=== PATIENT | male | born 1975 | race Caucasian/White ===

== ENCOUNTER 2022-12-10 03:29 | Emergency (ER) | payer OTHER, SELFPAY ==
[2022-12-10] VITALS (10 sets, daily range): BP systolic 152–203; BP diastolic 103–133; PULSE 73–94; RESP 12–23; O2SAT 85–100; BMI 21.9
--- NOTE | 2022-12-10 03:31 | ECG_ITS ---
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
--- NOTE | 2022-12-10 03:47 | ED.GENADUL1 ---
HPI - General Adult General Chief complaint: Weakness Stated complaint: hypertension Time Seen by Provider: 12/10/22 03:44 Source: patient Mode of arrival: ambulance Limitations: no limitations History of Present Illness HPI narrative: presents complaining of feeling light headed and stiff. He is an alcoholic. Has not drink in 12 hours. states he was not able to stay at work tonight because his body would become stiff. History of HTN . Takes linsinopril Onset (ago): hour(s) Related Data Allergies Allergy/AdvReac Type Severity Reaction Status Date / Time No Known Drug Allergies Allergy Verified 12/10/22 04:04 Review of Systems ROS Status of ROS 10 or more systems reviewed and unremarkable except as noted in history and below PFSH PFSH Social History Smoking status: Former smoker Exam Constitutional Vital Signs - 24 hr 12/10/22 03:32 12/10/22 03:29 12/10/22 03:42 Pulse Rate 89 88 Pulse Rate [Monitor] 88 Respiratory Rate 18 17 13 Blood Pressure 181/122 H 183/124 H Blood Pressure [Left Arm] 181/122 H Pulse Oximetry 99 100 100 Oxygen Delivery Method Room Air 12/10/22 04:00 12/10/22 04:30 12/10/22 04:00 Pulse Rate 94 H 79 Pulse Rate [Monitor] Respiratory Rate 19 12 Blood Pressure 169/113 H 203/133 H 200/103 H Blood Pressure [Left Arm] Pulse Oximetry 98 99 Oxygen Delivery Method 12/10/22 04:00 12/10/22 04:30 12/10/22 04:58 Pulse Rate 77 81 Pulse Rate [Monitor] Respiratory Rate 23 20 Blood Pressure 203/133 H 173/113 H Blood Pressure [Left Arm] Pulse Oximetry 99 95 95 Oxygen Delivery Method Room Air 12/10/22 05:00 12/10/22 05:34 12/10/22 05:00 Pulse Rate 77 76 Pulse Rate [Monitor] Respiratory Rate 16 15 Blood Pressure 171/113 H 172/113 H 171/113 H Blood Pressure [Left Arm] Pulse Oximetry 95 97 Oxygen Delivery Method 12/10/22 05:30 12/10/22 05:30 12/10/22 06:00 Pulse Rate 76 84 90 Pulse Rate [Monitor] Respiratory Rate 14 22 16 Blood Pressure 172/113 H 172/113 H 152/108 H Blood Pressure [Left Arm] Pulse Oximetry 97 97 94 L Oxygen Delivery Method Common normals: oriented x3, healthy appearing and alert HENMT Common normals: normocephalic and head/scalp atraumatic Eye Common normals: PERRL, EOMs intact bilaterally and conjunctivae normal Respiratory Common normals: normal respiratory effort, no retractions and no use of accessory muscles Cardio Common normals: regular rate, regular rhythm, S1 normal heart sound and S2 normal heart sound GI Common normals: Normal to inspection, nondistended, normoactive bowel sounds present, soft to palpation and non-tender Extremity Common normals: normal to inspection and full ROM Neuro Common normals: oriented x3, CN's II-XII intact bilaterally, moves all extremities, no focal motor deficits and no sensory deficits noted Psych Appearance: grossly normal Course Vital Signs Vital signs: Vital Signs Pulse Rate 89 12/10/22 03:29 Respiratory Rate 17 12/10/22 03:29 Blood Pressure 181/122 H 12/10/22 03:29 Pulse Oximetry 100 12/10/22 03:29 Pulse Rate 90 12/10/22 06:00 Respiratory Rate 16 12/10/22 06:00 Blood Pressure 152/108 H 12/10/22 06:00 Pulse Oximetry 94 L 12/10/22 06:00 Oxygen Delivery Method Room Air 12/10/22 04:00 Medical Decision Making MDM Narrative Medical decision making narrative: patient presents complaining of hypertension and a sensation of his body becoming stiff at time. Given dose of Ativan and was able to relax without recurrence of this symptom. lab demonstrated mild hypokalemia that was treated. His BP was treated and decreased to 152/108. Down from 181 systolic. He is feeling better. Advised to go home and take his dose of lisinopril for today and to follow up with his family doctor Lab Data Labs: Lab Results 12/10/22 Range/Units 03:35 WBC 6.8 (4.0-11.0) 10^3/uL RBC 4.09 L (4.70-6.10) 10^6/uL Hgb 14.0 (14.0-18.0) g/dL Hct 38.3 L (42.0-54.0) % MCV 93.6 (80.0-94.0) fL MCH 34.2 H (25.9-34.0) pg MCHC 36.6 H (29.9-35.2) g/dL RDW 11.3 (11.0-15.0) % Plt Count 266 (150-450) 10^3/uL MPV 9.4 L (9.5-13.5) fL Neut % (Auto) 80.9 H (43.0-75.0) % Lymph % (Auto) 12.0 L (20.5-60.0) % [place] % (Auto) 5.9 (1.7-12.0) % Eos % (Auto) 0.1 L (0.9-7.0) % Baso % (Auto) 1.0 (0.2-2.0) % Neut # (Auto) 5.5 (1.4-6.5) 10^3/uL Lymph # (Auto) 0.8 L (1.2-3.8) 10^3/uL [place] # (Auto) 0.4 (0.3-0.8) 10^3/uL Eos # (Auto) 0.0 (0.0-0.7) 10^3/uL Baso # (Auto) 0.1 (0.0-0.1) 10^3/uL Abs Immat Gran (auto) 0.01 (0.00-0.03) 10^3/uL Imm/Tot Granulo (auto) 0.1 (0.0-0.5) % Sodium 135 L (136-145) mmol/L Potassium 3.3 L (3.5-5.1) mmol/L Chloride 98 (98-107) mmol/L Carbon Dioxide 22.5 (21.0-32.0) mmol/L Anion Gap 17.8 BUN 9.0 (7.0-18.0) mg/dL Creatinine 0.95 (0.70-1.30) mg/dL Est GFR ( Amer) >60 (>=60) Est GFR (Non-Af Amer) >60 (>=60) BUN/Creatinine Ratio 9.5 Glucose 105 (74-106) mg/dL Calcium 9.6 (8.5-10.1) mg/dL Magnesium 2.0 (1.8-2.4) mg/dL Total Bilirubin 0.5 (0.2-1.0) mg/dL AST 34 (15-37) U/L ALT 33 (16-63) U/L Alkaline Phosphatase 68 (46-116) U/L Total Protein 8.3 H (6.4-8.2) g/dL Albumin 4.8 (3.4-5.0) g/dL Globulin 3.5 g/dL Albumin/Globulin Ratio 1.4 Discharge Plan Discharge Chief Complaint: Weakness Clinical Impression: Hypertension, Anxiety Patient Disposition: Home, Self-Care Instructions: Hypertension (ED), Anxiety (ED) Additional Instructions: take your morning dose of lisinopril when you get home. Follow up with your family doctor in the next 1-2 days Stand Alone Forms: Portal Instructions Referrals: Physician,Non-Staff, MD [Primary Care Provider] - 1 week
[2022-12-10 04:13] LABS: Basophils Absolute Auto 0.1 10^3/uL (0.0-0.1); Eosinophils Percent Auto 0.1 % (0.9-7.0); Hematocrit 38.3 % (42.0-54.0); Immature Granulocytes Abs Auto 0.01 10^3/uL (0.00-0.03); Immature Granulocytes Pct Auto 0.1 % (0.0-0.5); Lymphocytes Absolute Auto 0.8 10^3/uL (1.2-3.8); Mean Corpuscular HGB Conc 36.6 g/dL (29.9-35.2); Mean Corpuscular Hemoglobin 34.2 pg (25.9-34.0); Mean Corpuscular Volume 93.6 fL (80.0-94.0); Mean Platelet Volume 9.4 fL (9.5-13.5); Monocytes Absolute Auto 0.4 10^3/uL (0.3-0.8); Monocytes Percent Auto 5.9 % (1.7-12.0); Neutrophils Absolute Auto 5.5 10^3/uL (1.4-6.5); Neutrophils Percent Auto 80.9 % (43.0-75.0); Platelet Count 266 10^3/uL (150-450); Red Blood Count 4.09 10^6/uL (4.70-6.10); Red Cell Distribution Width 11.3 % (11.0-15.0); White Blood Count 6.8 10^3/uL (4.0-11.0)
[2022-12-10 04:25] LABS: Alanine Aminotransferase 33 U/L (16-63); Albumin Globulin Ratio 1.4; Albumin Level 4.8 g/dL (3.4-5.0); Alkaline Phosphatase 68 U/L (46-116); Anion Gap 17.8; Aspartate Amino Transferase 34 U/L (15-37); BUN Creatinine Ratio 9.5; Bilirubin Total 0.5 mg/dL (0.2-1.0); Calcium 9.6 mg/dL (8.5-10.1); Carbon Dioxide 22.5 mmol/L (21.0-32.0); Chloride 98 mmol/L (98-107); Estimated GFR (African America >60 (>=60); Estimated GFR (Non-African Ame >60 (>=60); Globulin 3.5 g/dL; Glucose 105 mg/dL (74-106); Potassium 3.3 mmol/L (3.5-5.1); Sodium 135 mmol/L (136-145); Total Protein 8.3 g/dL (6.4-8.2)
[2022-12-10] MEDS: LORAZEPAM 1 MG TABLET PO (04:28)
[2022-12-10] MEDS: CLONIDINE HCL 0.1 MG TABLET PO ×2 (04:28→05:34)
[2022-12-10] MEDS: POTASSIUM CHLORIDE 10 MEQ ER TABLET 40 MEQ PO (05:34)
== END 2022-12-10 06:49 | disposition home or self-care (01) ==
PROVIDERS: Emergency Provider Internal Medicine
DX: E87.6 Hypokalemia (principal); I10 Essential (primary) hypertension; F41.9 Anxiety disorder, unspecified; Z79.899 Other long term (current) drug therapy; F10.20 Alcohol dependence, uncomplicated; Z87.891 Personal history of nicotine dependence
CPT/HCPCS: 36415; 80053; 81003; 83735; 85025; 93005; 99284

== ENCOUNTER 2023-06-16 22:07 | Emergency (ER) | payer OTHER, SELFPAY ==
[2023-06-16] VITALS (14 sets, daily range): BP systolic 147–190; BP diastolic 97–113; PULSE 86; RESP 16; TEMP 36.6; O2SAT 97–100; BMI 22.8
--- NOTE | 2023-06-16 22:54 | CT_ITS ---
The [address] [address] Patient Name: LEFTY AMBROCIO MRN: [id number] date: 1975 Sex: M Assigned Patient Location: ER Current Patient Location: Accession/Order Number: [id number] Exam Date: 06/16/2023 23:20 Report Date: 06/16/2023 23:48 At the request of: MADELEINE MARKER Procedure: CT lumbar spine wo con EXAM: CT lumbar spine wo con HISTORY: Lower ext weakness COMPARISON: None. TECHNIQUE: Axial CT scans of the lumbar spine were obtained without contrast. MPR images were obtained. Dose reduction techniques were achieved by using: automated exposure control and/or adjustment of mA and /or kV according to patient size and/or use of iterative reconstruction technique. FINDINGS: The alignment of the lumbar spine is normal. Disc heights are preserved. No disc protrusion, central spinal stenosis or neural foraminal stenosis. No spondylolysis or spondylolisthesis. No destructive bone lesions. SI joints are intact. Mild marginal osteophytes at the anterior aspects of the SI joints. The visualized retroperitoneum shows no adenopathy. CT/CT lumbar spine wo con IMPRESSION: Unremarkable CT of the lumbar spine. Electronically authenticated by: CECELIA TAYLOR Date: 06/16/2023 23:48
--- NOTE | 2023-06-16 22:54 | XR_ITS ---
The [address] [address] Patient Name: LEFTY AMBROCIO MRN: [id number] date: 1975 Sex: M Assigned Patient Location: ER Current Patient Location: ER Accession/Order Number: [id number] Exam Date: 06/16/2023 23:25 Report Date: 06/16/2023 23:54 At the request of: MADELEINE FRANCIS Procedure: XR hip RT 1V w/ pelvis XR hip RT 1V w/ pelvis: HISTORY: right hip pain right hip pain COMPARISON: None available. TECHNIQUE: 2 views of the right hip and bony pelvis are submitted. FINDINGS: BONES/JOINT SPACES: There is no acute fracture or dislocation. The joint spaces are well-maintained. The contour of each femoral head is well-maintained. SOFT TISSUES: The soft tissues are unremarkable. XR/XR hip RT 1V w/ pelvis IMPRESSION: Unremarkable plain film examination of the right hip and bony pelvis. Electronically authenticated by: LILIBETH BROOKE Date: 06/16/2023 23:54
--- NOTE | 2023-06-16 22:54 | ED.GENADUL1 ---
HPI - General Adult General Chief complaint: Extremity Problem, Nontraumatic Stated complaint: LEGS AND ARMS NUMBNESS, SHAKY Time Seen by Provider: 06/16/23 22:13 Source: patient Mode of arrival: walk-in Limitations: no limitations History of Present Illness HPI narrative: 38-year-old male presents for evaluation of right hip pain and numbness, intermittent shocking pains down his lower extremities and some weakness. He states he had similar symptoms last week. He also has intermittent shaking of his upper extremities. He denies any injury. He did have back surgery in the past with Dr. Cabrera. He denies any recent falls. He has not had any loss of bowel or bladder control. He recently stopped taking his lisinopril but did take a half a tablet earlier today. He has no chest pain or shortness of breath. He denies any abdominal pain. He has been urinating normally. He states he started taking magnesium because he thought that might help him with his shaking episodes. He does admit to drinking 6, 16 ounce beers on a daily basis. He states he has been trying to cut back recently. Related Data Home Medications Medication Instructions Recorded Confirmed No Known Home Medications 06/16/23 06/16/23 Allergies Allergy/AdvReac Type Severity Reaction Status Date / Time No Known Drug Allergies Allergy Verified 06/16/23 22:26 Review of Systems ROS Status of ROS 10 or more systems reviewed and unremarkable except as noted in history and below [facility] Social History Smoking status: Former smoker Exam Narrative Exam Narrative: Nurses note and vital signs reviewed and patient is not hypoxic. Blood pressure noted to be elevated at 150/105 General: Thin, male resting currently on the stretcher, he easily gets off of the stretcher to undress and change into a gown, he does appear to limp with an antalgic gait to the right due to right-sided hip pain, no respiratory distress Skin: Warm, dry, no pallor noted. There is no rash noted. Head: Normocephalic, atraumatic Eye: Normal conjunctiva, no drainage, EOMI. PERRL. No scleral icterus Ears, Nose, Mouth, and Throat: oral mucosa is moist. Nares patent. Cardiovascular: Regular Rate and Rhythm S1S2, pulses are brisk and equal bilaterally Respiratory: Patient is in no distress, no accessory muscle use, lungs are clear to auscultation, no wheezing, rales or rhonchi Back: non-tender, no CVA tenderness bilaterally to percussion. No midline bony vertebral tenderness or step off, no apprec muscle spasm GI: Normal bowel sounds, no tenderness to palpation, no masses appreciated. No rebound, guarding, or rigidity noted. Musculoskeletal: The patient has no evidence of calf tenderness, no pitting edema, symmetrical pulses noted bilaterally Negative straight leg raising , no muscle fasciculations noted, upper and lower extremity strength and sensation is intact Neurological: A&O x4, normal speech, No saddle anesthesia, deep tendon reflexes are brisk and equal bilaterally. Patient is able to raise both legs off the stretcher and hold them against gravity independently without any weakness noted or fasciculations, sensation in the feet, lower legs and thighs, lower abdomen and back as well as upper extremities is normal. [employer] strength is intact. Psychiatric: Cooperative Constitutional Vital Signs, click to edit/add: Last Vital Signs Temp 98 F 06/16/23 22:22 Pulse 86 06/16/23 22:22 Resp 16 06/16/23 22:22 BP 147/95 H 06/17/23 01:00 Pulse Ox 98 06/17/23 01:10 O2 Del Method Room Air 06/16/23 22:22 Course Vital Signs Vital signs: Vital Signs Temperature 98 F 06/16/23 22:22 Pulse Rate 86 06/16/23 22:22 Respiratory Rate 16 06/16/23 22:22 Blood Pressure 190/110 H 06/16/23 22:22 Pulse Oximetry 98 06/16/23 22:22 Oxygen Delivery Method Room Air 06/16/23 22:22 Temperature 98 F 06/16/23 22:22 Pulse Rate 86 06/16/23 22:22 Respiratory Rate 16 06/16/23 22:22 Blood Pressure 147/95 H 06/17/23 01:00 Pulse Oximetry 98 06/17/23 01:10 Oxygen Delivery Method Room Air 06/16/23 22:22 Medical Decision Making MDM Narrative Medical decision making narrative: This 48-year-old male presents for evaluation of right sided hip pain and left-sided leg pain with intermittent sharp stabbing pains that are electric-like at times with numbness and tingling and occasional weakness. The patient states he had similar symptoms several weeks ago that resolved. He does not currently have a family physician. He was formally seeing a physician and is on lisinopril for his blood pressure. The patient has not had any recent trauma. He has not had any bowel or bladder dysfunction. He also complains of intermittent muscle spasms to his upper extremities. He admits to daily alcohol use. He states that he does not wish to drink alcohol on a daily basis but gets stressed out at work and uses alcohol to help relieve his stress and anxiety. He has not had any recent fever. He has no skin rash. His neuro exam is normal. His upper and lower from a strength and sensation is intact. He appears cognitively normal and not intoxicated during the exam. An IV was placed and he was medicated with 125mg IV solumedrol and IVF. Routine labs are reviewed and are normal. CT scan of the lumbar spine which is included in the body of this report does not show any acute findings and x-ray of the right hip is also normal. After the radiographic studies were resolved and I discussed them with the patient he admitted to me that these symptoms are long-standing and he was going to try to get disability for them in the past. I did discuss his alcohol use with him and suggested that he decrease his alcohol intake as some of these spastic episodes he is having may be related to his alcohol use. He verbalizes understanding of this. He will be referred outpatient family medicine and may require a referral to neurology for further evaluation of the neurologic symptoms he is explaining to me but are not evident on the physical exam. He is neurologically and hemodynamically stable for discharge. He will be referred to outpatient family medicine Medical Records Medical records narrative: The [address] [address] [address] Scan Report Signed Patient: LEFTY AMBROCIO MR#: [id number] : 1975 Acct:[id number] Age/Sex: 48 / M ADM Date: 06/16/23 Loc: ER Attending Dr: Ordering Physician: Peggy Moore Date of Service: 06/16/23 Procedure(s): CT lumbar spine wo con Accession Number(s): [id number] cc: Physician,Non-Staff M.DGregg~ The [address] [address] Patient Name: LEFTY AMBROCIO MRN: [id number] date: 1975 Sex: M Assigned Patient Location: ER Current Patient Location: ER Accession/Order Number: [id number] Exam Date: 06/16/2023 23:20 Report Date: 06/16/2023 23:48 At the request of: PEGGY MARKER Procedure: CT lumbar spine wo con EXAM: CT lumbar spine wo con HISTORY: Lower ext weakness COMPARISON: None. TECHNIQUE: Axial CT scans of the lumbar spine were obtained without contrast. MPR images were obtained. Dose reduction techniques were achieved by using: automated exposure control and/or adjustment of mA and /or kV according to patient size and/or use of iterative reconstruction technique. FINDINGS: The alignment of the lumbar spine is normal. Disc heights are preserved. No disc protrusion, central spinal stenosis or neural foraminal stenosis. No spondylolysis or spondylolisthesis. No destructive bone lesions. SI joints are intact. Mild marginal osteophytes at the anterior aspects of the SI joints. The visualized retroperitoneum shows no adenopathy. CT/CT lumbar spine wo con IMPRESSION: Unremarkable CT of the lumbar spine. Electronically authenticated by: CECELIA TAYLOR Date: 06/16/2023 23:[address] [address] XRay Report Signed Patient: LEFTY AMBROCIO MR#: [id number] : 1975 Acct:[id number] Age/Sex: 48 / M ADM Date: 06/16/23 Loc: ER Attending Dr: Ordering Physician: Peggy Moore Date of Service: 06/16/23 Procedure(s): XR hip RT 1V w/ pelvis Accession Number(s): [id number] cc: Peggy Marker; Physician,Non-Staff M.D.~ The [address] [address] Patient Name: LEFTY AMBROCIO MRN: [id number] date: 1975 Sex: M Assigned Patient Location: ER Current Patient Location: ER Accession/Order Number: [id number] Exam Date: 06/16/2023 23:25 Report Date: 06/16/2023 23:54 At the request of: PEGGY MARKER Procedure: XR hip RT 1V w/ pelvis XR hip RT 1V w/ pelvis: HISTORY: right hip pain right hip pain COMPARISON: None available. TECHNIQUE: 2 views of the right hip and bony pelvis are submitted. FINDINGS: BONES/JOINT SPACES: There is no acute fracture or dislocation. The joint spaces are well-maintained. The contour of each femoral head is well-maintained. SOFT TISSUES: The soft tissues are unremarkable. XR/XR hip RT 1V w/ pelvis IMPRESSION: Unremarkable plain film examination of the right hip and bony pelvis. Electronically authenticated by: LILIBETH BROOKE Date: 06/16/2023 23: Lab Data Labs: Lab Results 06/16/23 Range/Units 23:00 WBC 3.6 L (4.0-11.0) 10^3/uL RBC 4.06 L (4.70-6.10) 10^6/uL Hgb 13.9 L (14.0-18.0) g/dL Hct 39.8 L (42.0-54.0) % MCV 98.0 H (80.0-94.0) fL MCH 34.2 H (25.9-34.0) pg MCHC 34.9 (29.9-35.2) g/dL RDW 11.3 (11.0-15.0) % Plt Count 234 (150-450) 10^3/uL MPV 9.7 (9.5-13.5) fL Neut % (Auto) 52.6 (43.0-75.0) % Lymph % (Auto) 32.4 (20.5-60.0) % [place] % (Auto) 10.4 (1.7-12.0) % Eos % (Auto) 2.7 (0.9-7.0) % Baso % (Auto) 1.6 (0.2-2.0) % Neut # (Auto) 1.9 (1.4-6.5) 10^3/uL Lymph # (Auto) 1.2 (1.2-3.8) 10^3/uL [place] # (Auto) 0.4 (0.3-0.8) 10^3/uL Eos # (Auto) 0.1 (0.0-0.7) 10^3/uL Baso # (Auto) 0.1 (0.0-0.1) 10^3/uL Abs Immat Gran (auto) 0.01 (0.00-0.03) 10^3/uL Imm/Tot Granulo (auto) 0.3 (0.0-0.5) % Sodium 135 L (136-145) mmol/L Potassium 3.9 (3.5-5.1) mmol/L Chloride 103 (98-107) mmol/L Carbon Dioxide 23.6 (21.0-32.0) mmol/L Anion Gap 12.3 BUN 13.0 (7.0-18.0) mg/dL Creatinine 0.88 (0.70-1.30) mg/dL Est GFR ( Amer) >60 (>=60) Est GFR (Non-Af Amer) >60 (>=60) BUN/Creatinine Ratio 14.8 Glucose 93 (74-106) mg/dL Calcium 8.7 (8.5-10.1) mg/dL Magnesium 2.1 (1.8-2.4) mg/dL Total Bilirubin 0.3 (0.2-1.0) mg/dL AST 18 (15-37) U/L ALT 28 (16-63) U/L Alkaline Phosphatase 85 (46-116) U/L Total Protein 7.6 (6.4-8.2) g/dL Albumin 4.0 (3.4-5.0) g/dL Globulin 3.6 g/dL Albumin/Globulin Ratio 1.1 Discharge Plan Discharge Chief Complaint: Extremity Problem, Nontraumatic Clinical Impression: Muscle spasm, Chronic pain of right hip, Left lumbar radiculopathy Patient Disposition: Home, Self-Care Time of Disposition Decision: 01:23 Condition: Good Prescriptions / Home Meds: No Action No Known Home Medications Stand Alone Forms: Portal Instructions Referrals: Mario Braun MD [Physician] - 1 week Physician,Non-Staff, [Primary Care Provider] - 1 week
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
[2023-06-16 23:19] LABS: Basophils Absolute Auto 0.1 10^3/uL (0.0-0.1); Basophils Percent Auto 1.6 % (0.2-2.0); Eosinophils Absolute Auto 0.1 10^3/uL (0.0-0.7); Eosinophils Percent Auto 2.7 % (0.9-7.0); Hematocrit 39.8 % (42.0-54.0); Hemoglobin 13.9 g/dL (14.0-18.0); Immature Granulocytes Abs Auto 0.01 10^3/uL (0.00-0.03); Immature Granulocytes Pct Auto 0.3 % (0.0-0.5); Lymphocytes Absolute Auto 1.2 10^3/uL (1.2-3.8); Lymphocytes Percent Auto 32.4 % (20.5-60.0); Mean Corpuscular HGB Conc 34.9 g/dL (29.9-35.2); Mean Corpuscular Hemoglobin 34.2 pg (25.9-34.0); Mean Platelet Volume 9.7 fL (9.5-13.5); Monocytes Absolute Auto 0.4 10^3/uL (0.3-0.8); Monocytes Percent Auto 10.4 % (1.7-12.0); Neutrophils Absolute Auto 1.9 10^3/uL (1.4-6.5); Neutrophils Percent Auto 52.6 % (43.0-75.0); Platelet Count 234 10^3/uL (150-450); Red Blood Count 4.06 10^6/uL (4.70-6.10); Red Cell Distribution Width 11.3 % (11.0-15.0); White Blood Count 3.6 10^3/uL (4.0-11.0)
[2023-06-16] MEDS: 0.9 % SODIUM CHLORIDE 1,000 ML 1000 ML IV (23:28)
[2023-06-16] MEDS: METHYLPREDNISOLONE SOD SUCC PF 125 MG/2 ML VIAL IVP (23:28)
[2023-06-16 23:37] LABS: Alanine Aminotransferase 28 U/L (16-63); Albumin Globulin Ratio 1.1; Alkaline Phosphatase 85 U/L (46-116); Anion Gap 12.3; Aspartate Amino Transferase 18 U/L (15-37); BUN Creatinine Ratio 14.8; Bilirubin Total 0.3 mg/dL (0.2-1.0); Calcium 8.7 mg/dL (8.5-10.1); Carbon Dioxide 23.6 mmol/L (21.0-32.0); Chloride 103 mmol/L (98-107); Estimated GFR (African America >60 (>=60); Estimated GFR (Non-African Ame >60 (>=60); Globulin 3.6 g/dL; Glucose 93 mg/dL (74-106); Magnesium 2.1 mg/dL (1.8-2.4); Potassium 3.9 mmol/L (3.5-5.1); Sodium 135 mmol/L (136-145); Total Protein 7.6 g/dL (6.4-8.2)
[2023-06-17] VITALS (10 sets, daily range): BP systolic 137–151; BP diastolic 93–106; O2SAT 81–99
[2023-06-17] MEDS: KETOROLAC TROMETHAMINE 30 MG/ML VIAL IVP (01:32)
== END 2023-06-17 01:43 | disposition home or self-care (01) ==
PROVIDERS: Emergency Provider Emergency Medicine
DX: M25.551 Pain in right hip (principal); G89.29 Other chronic pain; M62.838 Other muscle spasm; M54.16 Radiculopathy, lumbar region; Z87.891 Personal history of nicotine dependence
CPT/HCPCS: 36415; 72131; 73501; 80053; 83735; 85025; 96374; 96375; 99285; J1885; J2930

== ENCOUNTER 2023-06-25 08:12 | Outpatient (RCR) | payer OTHER, SELFPAY | END 2023-07-23 16:38 | disposition home or self-care (01) | LOC: PT 08:12 | PROVIDERS: PCP Nurse Practitioner Family; Visit Provider Nurse Practitioner Family | DX: M25.551 Pain in right hip (principal); M54.30 Sciatica, unspecified side | CPT/HCPCS: 97110; 97112; 97140; 97163 ==

== ENCOUNTER 2023-09-17 04:40 | Emergency (ER) | payer OTHER, SELFPAY ==
[2023-09-17] VITALS (13 sets, daily range): BP systolic 152–180; BP diastolic 100–115; PULSE 71–91; TEMP 37; O2SAT 97–100; BMI 22.7
--- NOTE | 2023-09-17 04:51 | ECG_ITS ---
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
--- NOTE | 2023-09-17 05:00 | ED.GENADUL1 ---
HPI HPI - General Adult General Chief complaint: Anxiety Stated complaint: other Time Seen by Provider: 09/17/23 04:49 Source: patient Mode of arrival: ambulance History of Present Illness HPI narrative: This 48-year-old male with a history of hypertension, chronic right hip pain and all called dependence presents for evaluation of generally not feeling well. The patient states he has recently stopped drinking alcohol and was clean for about 30 days but then started drinking again in small quantities which have increased to larger quantities. He states he has a lot of anxiety issues over his finances and medical insurance. He called EMS tonight because he was feeling anxious and shaky and dizzy. He has not passed out. He denies any abdominal pain. He states he also recently quit smoking cigarettes and has not had a cigarette in the past 60 days. He is not currently seeing any physicians and is not on any blood pressure medication or anxiety medication. On EMS arrival he was found to be hypertensive and was given a spray of nitroglycerin. Upon arrival his blood pressure elevated at 180/113. Related Data Home Medications ?Medication ?Instructions ?Recorded ?Confirmed No Known Home Medications 06/16/23 06/16/23 Allergies Allergy/AdvReac Type Severity Reaction Status Date / Time naproxen AdvReac Intermediate Verified 09/17/23 04:49 oyster Allergy Severe Uncoded 09/17/23 04:49 Opioid HPI Opioid Management Most Recent Opioid Data: No Data to Display Review of Systems ROS Status of ROS 10 or more systems reviewed and unremarkable except as noted in history and below PFSH PFSH Social History Smoking status: Former smoker Exam Narrative Exam Narrative: Nurses note and vital signs reviewed and patient is not hypoxic.Blood pressures elevated at 180/113 General: Thin, anxious male, he is forthcoming with his history. No respiratory distress Skin: Warm, dry, no pallor noted. There is no rash noted. Head: Normocephalic, atraumatic Eye: Normal conjunctiva, no drainage, EOMI. PERRL. No scleral icterus Ears, Nose, Mouth, and Throat: oral mucosa is moist. Cardiovascular: Regular Rate and Rhythm S1S2, pulses are brisk and equal bilaterally Respiratory: Patient is in no distress, no accessory muscle use, lungs are clear to auscultation, no wheezing, rales or rhonchi Back: non-tender, no CVA tenderness bilaterally to percussion. GI: Normal bowel sounds, no tenderness to palpation, no masses appreciated. No rebound, guarding, or rigidity noted. Musculoskeletal: The patient has no evidence of calf tenderness, no pitting edema, symmetrical pulses noted bilaterally Neurological: A&O x4, normal speech Psychiatric: Cooperative, anxious Constitutional Vital Signs, click to edit/add: Last Vital Signs Temp 98.6 F 09/17/23 05:00 Pulse 71 09/17/23 06:00 Resp 20 09/17/23 04:49 BP 152/100 H 09/17/23 06:00 Pulse Ox 97 09/17/23 06:10 O2 Del Method Room Air 09/17/23 04:49 Course Vital Signs Vital signs: Vital Signs Pulse Rate 91 H 09/17/23 04:47 Pulse Oximetry 99 09/17/23 04:47 Temperature 98.6 F 09/17/23 05:00 Pulse Rate 71 09/17/23 06:00 Respiratory Rate 20 09/17/23 04:49 Blood Pressure 152/100 H 09/17/23 06:00 Pulse Oximetry 97 09/17/23 06:10 Oxygen Delivery Method Room Air 09/17/23 04:49 Medical Decision Making MDM Narrative Medical decision making narrative: This 48-year-old male with a history of hypertension, anxiety, chronic hip pain and a tremor is brought to the emergency department from home for evaluation. The patient states he has been trying to stop drinking alcohol and was clean from alcohol for approximately 30 days. Recently quit smoking cigarettes and has been clean from cigarettes for 60 days. He states that he thought he could start drinking small amounts of alcohol but it has gradually decreased up on him. He is also smoking marijuana when he gets drunk. He states he started feeling very anxious this morning and uncomfortable. He felt his heart was racing. EMS was called and his blood pressure was notably elevated. He was given some nitroglycerin spray by EMS and brought to the emergency department. On arrival an EKG was ordered which is a sinus rhythm at 80 beats for minute. An IV was placed and he was medicated with IV fluids, Thiamine and 5 mg of oral Valium.. His blood pressure has slowly come down and at the time of this dictation is 150/100. That he is having a lot of anxiety related to his financial situation and medical insurance issues. He is not currently seeing a family physician because he lost his insurance. He does not appear to be in any degree of alcohol withdrawal. His labs are normal including CBC with differential, comprehensive metabolic profile, magnesium and troponin. A reevaluation he states he is feeling better. He admits that he needs to get back into Alcoholics Anonymous and goes to meetings to help him refrain from using alcohol. I also encouraged him to stop using marijuana as the alcohol and marijuana combination are likely increasing his anxiety. He will be discharged for hydroxyzine to use for ongoing anxiety issues. He is agreeable to being prescribed a blood pressure medication but does not want Lisinopril because he thinks that it drops his blood pressure too much. I will prescribe him [id number]. Lab Data Labs: Lab Results 09/17/23 Range/Units 05:09 WBC 5.1 (4.0-11.0) 10^3/uL RBC 4.16 L (4.70-6.10) 10^6/uL Hgb 14.2 (14.0-18.0) g/dL Hct 39.8 L (42.0-54.0) % MCV 95.7 H (80.0-94.0) fL MCH 34.1 H (25.9-34.0) pg MCHC 35.7 H (29.9-35.2) g/dL RDW 10.6 L (11.0-15.0) % Plt Count 229 (150-450) 10^3/uL MPV 9.6 (9.5-13.5) fL Neut % (Auto) 60.2 (43.0-75.0) % Lymph % (Auto) 28.4 (20.5-60.0) % [place] % (Auto) 9.0 (1.7-12.0) % Eos % (Auto) 1.0 (0.9-7.0) % Baso % (Auto) 1.2 (0.2-2.0) % Neut # (Auto) 3.1 (1.4-6.5) 10^3/uL Lymph # (Auto) 1.5 (1.2-3.8) 10^3/uL [place] # (Auto) 0.5 (0.3-0.8) 10^3/uL Eos # (Auto) 0.1 (0.0-0.7) 10^3/uL Baso # (Auto) 0.1 (0.0-0.1) 10^3/uL Abs Immat Gran (auto) 0.01 (0.00-0.03) 10^3/uL Imm/Tot Granulo (auto) 0.2 (0.0-0.5) % Sodium 138 (136-145) mmol/L Potassium 3.6 (3.5-5.1) mmol/L Chloride 100 (98-107) mmol/L Carbon Dioxide 24.9 (21.0-32.0) mmol/L Anion Gap 16.7 BUN 12.0 (7.0-18.0) mg/dL Creatinine 0.87 (0.70-1.30) mg/dL Est GFR ( Amer) >60 (>=60) Est GFR (Non-Af Amer) >60 (>=60) BUN/Creatinine Ratio 13.8 Glucose 104 (74-106) mg/dL Calcium 9.1 (8.5-10.1) mg/dL Magnesium 1.9 (1.8-2.4) mg/dL Total Bilirubin 0.9 (0.2-1.0) mg/dL AST 31 (15-37) U/L ALT 38 (16-63) U/L Alkaline Phosphatase 71 (46-116) U/L Troponin I High Sens 5.6 (4.0-76.1) pg/mL Total Protein 7.6 (6.4-8.2) g/dL Albumin 4.3 (3.4-5.0) g/dL Globulin 3.3 g/dL Albumin/Globulin Ratio 1.3 ECG Data Attestation: I personally reviewed and interpreted this ECG as follows: (Sinus rhythm at 80 beats for minute, normal axis, normal intervals, no acute ST segment elevation or T-wave inversion) Discharge Plan Discharge Stand Alone Forms: Portal Instructions Chief Complaint: Anxiety Clinical Impression: Hypertension, Anxiety, Alcohol dependence with alcohol-induced anxiety disorder Patient Disposition: Home, Self-Care Time of Disposition Decision: 06:30 Condition: Good Prescriptions / Home Meds: No Action No Known Home Medications Print Language: Maltese Instructions: Hypertension (ED), Anxiety (ED), Alcohol Use Disorder (ED) Referrals: AGUILA HERNANDEZ [Nurse Practitioner] - 1 week
[2023-09-17 05:15] LABS: Basophils Absolute Auto 0.1 10^3/uL (0.0-0.1); Basophils Percent Auto 1.2 % (0.2-2.0); Eosinophils Absolute Auto 0.1 10^3/uL (0.0-0.7); Hematocrit 39.8 % (42.0-54.0); Hemoglobin 14.2 g/dL (14.0-18.0); Immature Granulocytes Abs Auto 0.01 10^3/uL (0.00-0.03); Immature Granulocytes Pct Auto 0.2 % (0.0-0.5); Lymphocytes Absolute Auto 1.5 10^3/uL (1.2-3.8); Lymphocytes Percent Auto 28.4 % (20.5-60.0); Mean Corpuscular HGB Conc 35.7 g/dL (29.9-35.2); Mean Corpuscular Hemoglobin 34.1 pg (25.9-34.0); Mean Corpuscular Volume 95.7 fL (80.0-94.0); Mean Platelet Volume 9.6 fL (9.5-13.5); Monocytes Absolute Auto 0.5 10^3/uL (0.3-0.8); Neutrophils Absolute Auto 3.1 10^3/uL (1.4-6.5); Neutrophils Percent Auto 60.2 % (43.0-75.0); Platelet Count 229 10^3/uL (150-450); Red Blood Count 4.16 10^6/uL (4.70-6.10); Red Cell Distribution Width 10.6 % (11.0-15.0); White Blood Count 5.1 10^3/uL (4.0-11.0)
[2023-09-17] MEDS: DIAZEPAM 5 MG TABLET PO (05:15)
[2023-09-17] MEDS: THIAMINE HCL 200 MG/2 ML VIAL 100 MG IVP (05:15)
[2023-09-17] MEDS: 0.9 % SODIUM CHLORIDE 1,000 ML 1000 ML IV (05:16)
--- OUTSIDE RECORDS SUMMARY | 2023-09-17 05:17 | XMS_ITS | CCD ---
Author Organization [facility] Care Team Providers Care Spectroscopist Name Role Phone REQUEST, DR NONE LISTED Primary Care Unavaila ble HAY, DR CRESPO Admitting Unavailable HAY, DR CRESPO Attending Unavailable HAY, DR CRESPO Consulting Unavailable JENNY LAFLEUR Admitting Unavailable JENNY LAFLEUR Attending Unavailable JENNY LAFLEUR Consulting Unavailable REQUEST, DR MERINO LISTED Primary Care Unavaila ble EH, DR GABRIELLA Patel Consulting Unavailabl e FAWWAD, NG H Primary Care Unavailable EH, DR GABRIELLA Patel Admitting Unavailabl e EH, DR GABRIELLA Patel Attending Unavailabl e MAINE SUN Consulting Unavailable HAY, DR CRESPO Admitting Unavailable FAWWAD, NG H Primary Care Unavailable HAY, DR CRESPO Attending Unavailable HAY, DR CRESPO Consulting Unavailable FAWWAD, NG H Admitting Unavailable FAWWAD, NG H Attending Unavailable FAWWAD, NG H Consulting Unavailable FAWWAD, NG H Primary Care Unavailable Allergies Allergy Classification Reported Allergen(s) Allergy Type Date of Onset Reaction(s) Facility (1 source) Acetaminophen Drug Allergy [facility] Repository (1 source) black walnut pollen extract Drug Allergy [facility] Rep[facility] (1 source) Naproxen Drug Allergy [facility] Rep[facility] (1 source) Niacin Drug Allergy [facility] Rep[facility] Problems Active Problems Problem Classification Problem Date Documented Date Episodic/Chronic Complications of surgical procedures or medical care (4 sources) Postprocedural hemorrhage of a digestive system organ or structure following a digestive system procedure; Translations: [POSTPROC HEM DS ORG/STR FLW DS PROC] Onset: 05-25-2022 Episodic Disorders of lipid metabolism (1 source) Mixed hyperlipidemia; Translations: [MIXED HYPERLIPIDEMIA] Onset: 11-26-2021 Chronic Disorders of teeth and jaw (1 source) Chronic gingivitis, plaque induced; Translations: [CHRONIC GINGIVITIS PLAQUE INDUCED] Onset: 05-20-2022 Chronic Disorders of teeth and jaw (4 sources) Other specified disorders of teeth and supporting structures; Translations: [OTH SPEC DISORDERS TEETH SUPP STRCT] Onset: 05-17-2022 Episodic Essential hypertension (5 sources) Essential (primary) hypertension; Translations: [ESSENTIAL PRIMARY HYPERTENSION] Onset: 11-24-2021 Chronic Other aftercare (1 source) Other residential (current) drug therapy; Translations: [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 DRUG THERAPY] Onset: 05-27-2022 Episodic Substance-related disorders (1 source) Nicotine dependence, cigarettes, uncomplicated; Translations: [NICOTINE DEPEND CIGARETTES UNCOMP] Onset: 05-27-2022 Chronic Unclassified (1 source) COUGH, UNSPECIFIED; Translations: [COUGH, UNSPECIFIED] Onset: 05-20-2022 Past or Other Problems Problem Classification Problem Date Documented Da te Episodic/Chronic Conditions associated with dizziness or vertigo (4 sources) Dizziness and giddiness; Translations: [DIZZINESS AND GIDDINESS] Onset: 02-19-2022 Episodic Other screening for suspected conditions (not mental disorders or infectious disease) (1 source) Encounter for screening for diabetes mellitus; Translations: [ENCOUNTER FOR SCREENING FOR DM] Onset: 11-26-2021 Episodic Substance-related disorders (1 source) Cannabis use, unspecified, uncomplicated; Translations: [CANNABIS USE UNS UNCOMPLICATED] Onset: 02-21-2022 Episodic Results Test Name Value Interpretation Reference Range Facility XR CHEST 2 Von 05-17-2022 XR CHEST 2 V EXAMINATION: XR CHEST 2 V, 05/17/2022 12:16 PM EST HISTORY: COUGH COMPARISON: None. TECHNIQUE: PA and lateral views of the chest were obtained. FINDINGS: Medical devices: None. Cardiomediastinal silhouette is within normal limits. The lungs are clear. No pleural effusion or pneumothorax. Mild degenerative change of the spine. No definite acute osseous abnormality. IMPRESSION: 1. No acute cardiopulmonary abnormality. Electronically authenticated by: MAINE SUN Date: 2022-05-17 13:37 Normal [facility] CBC AUTO DIFFon 02-19-2022 BASO # 0.0 103/ul Normal 0.0-0.1 [facility] Comment on above: Performed By: #### C BC #### [facility] Laboratory [address] [address] [address] Ivonne Ojeda Basophils/100 WBC (Bld) 0.6 % Normal 0.2-2.0 [facility] Comment on above: Performed By: #### C BC #### [facility] Laboratory [address] [place] [address] Dr. Ivonne Ojeda EO # 0.0 103/ul Normal 0.0-0.7 [facility] Comment on above: Performed By: #### C BC #### [facility] [address] [place] [address] Dr. Ivonne Ojeda Eosinophils/100 WBC (Bld) 0.8 % Critically low 0.9-7.0 [facility] Comment on above: Performed By: #### C BC #### [facility] [address] [place] [address] Dr. Ivonne Ojeda Erythrocyte distribution width (RBC) [Ratio] 12.3 % Normal 11.0-15.0 [facility] Comment on above: Performed By: #### C BC #### [facility] [address] [place] [address] Dr. Ivonne Ojeda Hematocrit (Bld) [Volume fraction] 44.0 % Normal 42.0-54.0 [facility] Comment on above: Performed By: #### C BC #### [facility] [address] [place] [address] Dr. Ivonne Ojeda Hemoglobin (Bld) [Mass/Vol] 15.0 g/dL Normal 14.0-18.0 [facility] Comment on above: Performed By: #### C BC #### [facility] [address] [place] [address] Dr. Ivonne Ojeda IG # 0.02 10e3/ul Normal 0.00-0.03 [facility] Comment on above: Performed By: #### C BC #### [facility] [address] [place] [address] Dr. Ivonne Ojeda IG % 0.4 % Normal 0.0-0.5 [facility] Comment on above: Performed By: #### C BC #### [facility] [address] [place] [address] Dr. Ivonne Ojeda LYMPH # 1.0 103/ul Critically low 1.2-3.8 [facility] Comment on above: Performed By: #### C BC #### [facility] [address] [place] [address] Dr. Ivonne Ojeda Lymphocytes/100 WBC (Bld) 18.7 % Critically low 20.5-60.0 [facility] Comment on above: Performed By: #### C BC #### [facility] [address] [place] [address] Dr. Ivonne Ojeda MANUAL DIFF REQ NO Normal [facility] Comment on above: Performed By: #### C BC #### [facility] [address] [place] [address] Dr. Ivonne Ojeda MCH (RBC) [Entitic mass] 33.6 pg Normal 25.9-34.0 [facility] Comment on above: Performed By: #### C BC #### [facility] [address] [place] [address] Dr. Ivonne Ojeda MCHC (RBC) [Mass/Vol] 34.1 g/dL Normal 29.9-35.2 [facility] Comment on above: Performed By: #### C BC #### [facility] [address] [place] [address] Dr. Ivonne Ojeda MCV (RBC) [Entitic vol] 98.7 fL Critically high 80.0-94.0 [facility] Comment on above: Performed By: #### C BC #### [facility] [address] [place] [address] Dr. Ivonne Ojeda MONO # 0.4 103/ul Normal 0.3-0.8 [facility] Comment on above: Performed By: #### C BC #### [facility] [address] [place] [address] Dr. Ivonne Ojeda Monocytes/100 WBC (Bld) 7.1 % Normal 1.7-12.0 [facility] Comment on above: Performed By: #### C BC #### [facility] [address] [place] [address] Dr. Ivonne Ojeda NEUT # 3.8 103/ul Normal 1.4-6.5 [facility] Comment on above: Performed By: #### C BC #### [facility] [address] [address] [address] Ivonne Ojeda Neutrophils/100 WBC (Bld) 72.4 % Normal 43.0-75.0 [facility] Comment on above: Performed By: #### C BC #### [facility] [address] [place] [address] Dr. Ivonne Ojeda Platelet mean volume (Bld) [Entitic vol] 9.8 fL Normal 9.5-13.5 [facility] Comment on above: Performed By: #### C BC #### [facility] [address] [place] [address] Dr. Ivonne Ojeda PLT 256 103/ul Normal 150-450 [facility] Comment on above: Performed By: #### C BC #### [facility] [address] [place] [address] Dr. Ivonne Ojeda RBC 4.46 106/ul Critically low 4.70-6.10 [facility] Comment on above: Performed By: #### C BC #### [facility] [address] [place] [address] Dr. Ivonne Ojeda WBC 5.2 103/ul Normal 4.0-11.0 [facility] Comment on above: Performed By: #### C BC #### [facility] [address] [place] [address] Dr. Ivonne Ojeda PROF CHEM 8 (BAS METB)on Anion gap [Moles/Vol] 13.4 mmol/L Normal [facility] Comment on above: Performed By: #### B MP, TSH #### [facility] [address] [place] [address] Dr. Ivonne Ojeda Calcium [Mass/Vol] 8.8 mg/dL Normal 8.5-10.1 [facility] Comment on above: Performed By: #### B MP, TSH #### [facility] [address] [place] [address] Dr. Ivonne Ojeda Chloride [Moles/Vol] 104 mmol/L Normal 98-107 [facility] Comment on above: Performed By: #### B JONNY, TSH #### [facility] [address] [place] [address] Dr. Ivonne Ojeda CO2 [Moles/Vol] 22.4 mmol/L Normal 21.0-32.0 [facility] Comment on above: Performed By: #### B JONNY, TSH #### [facility] [address] [place] [address] Dr. Ivonne Ojeda Creatinine [Mass/Vol] 0.92 mg/dL Normal 0.70-1.30 [facility] Comment on above: Performed By: #### B JONNY, TSH #### [facility] [address] [place] [address] Dr. Ivonne Ojeda EGFR-AF MALAYSIAN >60 Normal >=60 [facility] Comment on above: Performed By: #### B JONNY, TSH #### [facility] [address] [place] [address] Dr. Ivonne Ojeda EGFR-NON AF MALAYSIAN >60 Normal >=60 [facility] Comment on above: Performed By: #### B JONNY, TSH #### [facility] [address] [place] [address] Dr. Ivonne Ojeda Glucose [Mass/Vol] 96 mg/dL Normal 74-106 [facility] Comment on above: Performed By: #### B JONNY, TSH #### [facility] [address] [place] [address] Dr. Ivonne Ojeda Potassium [Moles/Vol] 3.8 mmol/L Normal 3.5-5.1 [facility] Comment on above: Performed By: #### B JONNY, TSH #### [facility] [address] [place] [address] Dr. Ivonne Ojeda Sodium [Moles/Vol] 136 mmol/L Normal 136-145 [facility] Comment on above: Performed By: #### B JONNY, TSH #### [facility] [address] [place] [address] Dr. Ivonne Ojeda Urea nitrogen [Mass/Vol] 10.0 mg/dL Normal 7.0-18.0 [facility] Comment on above: Performed By: #### B MP, TSH #### [facility] [address] [place] [address] Dr. Ivonne Ojeda Urea nitrogen/Creatinine [Mass ratio] 10.9 mg/mg Normal [facility] Comment on above: Performed By: #### B MP, TSH #### [facility] [address] [place] [address] Dr. Ivonne Ojeda TSHon 02-19-2022 TSH 0.781 uIU/mL Normal 0.358-3.740 [facility] Comment on above: Performed By: #### B MP, TSH #### [facility] [address] [place] [address] Dr. Ivonne Ojeda CBC AUTO DIFFon 11-24-2021 BASO # 0.0 103/ul Normal 0.0-0.1 [facility] Comment on above: Performed By: #### C BC #### [facility] [address] [place] [address] Dr. Ivonne Ojeda Basophils/100 WBC (Bld) 0.5 % Normal 0.2-2.0 [facility] Comment on above: Performed By: #### C BC #### [facility] [address] [place] [address] Dr. Ivonne Ojeda EO # 0.2 103/ul Normal 0.0-0.7 [facility] Comment on above: Performed By: #### C BC #### [facility] [address] [place] [address] Dr. Ivonne Ojeda Eosinophils/100 WBC (Bld) 2.0 % Normal 0.9-7.0 [facility] Comment on above: Performed By: #### C BC #### [facility] [address] [place] [address] Dr. Ivonne Ojeda Erythrocyte distribution width (RBC) [Ratio] 12.8 % Normal 11.0-15.0 [facility] Comment on above: Performed By: #### C BC #### [facility] [address] [place] [address] Dr. Ivonne Ojeda Hematocrit (Bld) [Volume fraction] 42.4 % Normal 42.0-54.0 [facility] Comment on above: Performed By: #### C BC #### [facility] [address] [place] [address] Dr. Ivonne Ojeda Hemoglobin (Bld) [Mass/Vol] 14.5 g/dL Normal 14.0-18.0 [facility] Comment on above: Performed By: #### C BC #### [facility] [address] [place] [address] Dr. Ivonne Ojeda IG # 0.02 10e3/ul Normal 0.00-0.03 [facility] Comment on above: Performed By: #### C BC #### [facility] [address] [place] [address] Dr. Ivonne Ojeda IG % 0.2 % Normal 0.0-0.5 [facility] Comment on above: Performed By: #### C BC #### [facility] [address] [place] [address] Dr. Ivonne Ojeda LYMPH # 1.7 103/ul Normal 1.2-3.8 [facility] Comment on above: Performed By: #### C BC #### [facility] [address] [place] [address] Dr. Ivonne Ojeda Lymphocytes/100 WBC (Bld) 19.6 % Critically low 20.5-60.0 [facility] Comment on above: Performed By: #### C BC #### [facility] [address] [place] [address] Dr. Ivonne Ojeda MANUAL DIFF REQ NO Normal [facility] Comment on above: Performed By: #### C BC #### [facility] [address] [place] [address] Dr. Ivonne Ojeda MCH (RBC) [Entitic mass] 32.8 pg Normal 25.9-34.0 [facility] Comment on above: Performed By: #### C BC #### [facility] [address] [place] [address] Dr. Ivonne Ojeda MCHC (RBC) [Mass/Vol] 34.2 g/dL Normal 29.9-35.2 [facility] Comment on above: Performed By: #### C BC #### [facility] [address] [place] [address] Dr. Ivonne Ojeda MCV (RBC) [Entitic vol] 95.9 fL Critically high 80.0-94.0 [facility] Comment on above: Performed By: #### C BC #### [facility] [address] [place] [address] Dr. Ivonne Ojeda MONO # 0.6 103/ul Normal 0.3-0.8 [facility] Comment on above: Performed By: #### C BC #### [facility] [address] [place] [address] Dr. Ivonne Ojeda Monocytes/100 WBC (Bld) 6.7 % Normal 1.7-12.0 [facility] Comment on above: Performed By: #### C BC #### [facility] [address] [place] [address] Dr. Ivonne Ojeda NEUT # 6.0 103/ul Normal 1.4-6.5 [facility] Comment on above: Performed By: #### C BC #### [facility] [address] [place] [address] Dr. Ivonne Ojeda Neutrophils/100 WBC (Bld) 71.0 % Normal 43.0-75.0 [facility] Comment on above: Performed By: #### C BC #### [facility] [address] [place] [address] Dr. Ivonne Ojeda Platelet mean volume (Bld) [Entitic vol] 10.4 fL Normal 9.5-13.5 [facility] Comment on above: Performed By: #### C BC #### [facility] [address] [place] [address] Dr. Ivonne Ojeda PLT 248 103/ul Normal 150-450 [facility] Comment on above: Performed By: #### C BC #### [facility] [address] [place] [address] Dr. Ivonne Ojeda RBC 4.42 106/ul Critically low 4.70-6.10 [facility] Comment on above: Performed By: #### C BC #### [facility] [address] [address] [address] Ivonne Ojeda WBC 8.5 103/ul Normal 4.0-11.0 [facility] Comment on above: Performed By: #### C BC #### [facility] [address] [address] [address] Ivonne Ojeda GLYCOHEMOGLOBIN A1Con 2021 ADA RECOMMENDATION SEE BELOW Normal [facility] Comment on above: Result Comment: ADA RECOMMENDED LIMIT 4.0 - 6.0 ADA THERAPEUTIC TARGET < 7.0 ACTION SUGGESTED > 7.0 Performed By: #### A 1C #### [facility] [address] [place] [address] Dr. Ivonne Ojeda Glucose [Mass/Vol] 105 mg/dL Normal [facility] Comment on above: Performed By: #### A 1C #### [facility] [address] [place] [address] Dr. Ivonne Ojeda HbA1c (Bld) [Mass fraction] 5.3 % Normal 4.5-6.2 [facility] Comment on above: Performed By: #### A 1C #### [facility] [address] [place] [address] Dr. Ivonne Ojeda LIPID PROFILEon 11-24-2021 CHOL-HDL RATIO NORM SEE BELOW Normal [facility] Comment on above: Result Comment: 3.3 - 4.4 LOW RISK 4.4 - 7.1 AVERAGE RISK 7.1 - 11.0 MODERATE RISK >11.0 HIGH RISK Performed By: #### L IPID, CMP #### [facility] [address] [address] [address] Ivonne Ojeda Cholesterol [Mass/Vol] 309 mg/dL Critically high <=200 [facility] Comment on above: Performed By: #### L IPID, CMP #### [facility] [address] [place] [address] Dr. Ivonne Ojeda Cholesterol in HDL [Mass/Vol] 53 mg/dL Normal 40-60 [facility] Comment on above: Performed By: #### L IPID, CMP #### [facility] [address] [address] [address] Ivonne Ojeda Cholesterol in LDL [Mass/Vol] 224.6 mg/dL Normal [facility] Comment on above: Performed By: #### L IPID, CMP #### [facility] [address] [address] [address] Ivonne Ojeda Cholesterol.total/Ch olesterol in HDL [Mass ratio] 5.8 {ratio} Normal [facility] Comment on above: Performed By: #### L IPID, CMP #### [facility] [address] [address] [address] Ivonne Ojeda HDL NORMAL > or = 60 mg/dl - LOW CARDIOVASCULAR RISK <40 mg/dl - HIGH CARDIOVASCULAR RISK Normal [facility] Comment on above: Performed By: #### L IPID, CMP #### [facility] [address] [place] [address] Dr. Ivonne Ojeda LDL CALC NORMAL SEE BELOW Normal [facility] Comment on above: Result Comment: <100 mg/dl OPTIMAL 100 - 129 mg/dl NEAR OR ABOVE OPTIMAL 130 - 159 mg/dl BORDERLINE HIGH 160 - 189 mg/dl HIGH >190 mg/dl VERY HIGH Performed By: #### L IPID, CMP #### [facility] [address] [place] [address] Dr. Ivonne Ojeda Triglyceride [Mass/Vol] 157 mg/dL Critically high <=150 [facility] Comment on above: Performed By: #### L IPID, CMP #### [facility] [address] [place] [address] Dr. Ivonne Ojeda VLDL CALC 31.4 mg/dL Normal [facility] Comment on above: Performed By: #### L IPID, CMP #### [facility] [address] [place] [address] Dr. Ivonne Ojeda PROF 14(COMP METB)on 022 Albumin [Mass/Vol] 3.8 g/dL Normal 3.4-5.0 [facility] Comment on above: Performed By: #### L IPID, CMP #### [facility] [address] [address] [address] Ivonne Ojeda Albumin/Globulin [Mass ratio] 1.1 {ratio} Normal [facility] Comment on above: Performed By: #### L IPID, CMP #### [facility] [address] [address] [address] Ivonne Ojeda ALP [Catalytic activity/Vol] 76 U/L Normal 46-116 [facility] Comment on above: Performed By: #### L IPID, CMP #### [facility] [facility] [address] [address] [address] Ivonne Ojeda ALT [Catalytic activity/Vol] 43 U/L Normal 16-63 [facility] Comment on above: Performed By: #### L IPID, CMP #### [facility] [address] [address] [address] Ivonne Ojeda Anion gap [Moles/Vol] 11.9 mmol/L Normal [facility] Comment on above: Performed By: #### L IPID, CMP #### [facility] [address] [address] [address] Ivonne Ojeda AST [Catalytic activity/Vol] 30 U/L Normal 15-37 [facility] Comment on above: Performed By: #### L IPID, CMP #### [facility] [address] [address] [address] Ivonne Ojeda Bilirubin [Mass/Vol] 0.5 mg/dL Normal 0.2-1.0 [facility] Comment on above: Performed By: #### L IPID, CMP #### [facility] [address] [address] [address] Ivonne Ojeda Calcium [Mass/Vol] 8.9 mg/dL Normal 8.5-10.1 [facility] Comment on above: Performed By: #### L IPID, CMP #### [facility] [address] [address] [address] Ivonne Ojeda Chloride [Moles/Vol] 102 mmol/L Normal 98-107 [facility] Comment on above: Performed By: #### L IPID, CMP #### [facility] [address] [address] [address] Ivonne Ojeda CO2 [Moles/Vol] 27.9 mmol/L Normal 21.0-32.0 [facility] Comment on above: Performed By: #### L IPID, CMP #### [facility] [address] [address] [address] Ivonne Ojeda Creatinine [Mass/Vol] 0.94 mg/dL Normal 0.70-1.30 [facility] Comment on above: Performed By: #### L IPID, CMP #### [facility] [address] [address] [address] Ivonne Ojeda EGFR-AF MALAYSIAN >60 Normal >=60 [facility] Comment on above: Performed By: #### L IPID, CMP #### [facility] [address] [place] [address] Dr. Ivonne Ojeda EGFR-NON AF MALAYSIAN >60 Normal >=60 [facility] Comment on above: Performed By: #### L IPID, CMP #### [facility] [address] [place] [address] Dr. Ivonne Ojeda Globulin (S) [Mass/Vol] 3.6 g/dL Normal [facility] Comment on above: Performed By: #### L IPID, CMP #### [facility] [address] [address] [address] Ivonne Ojeda Glucose [Mass/Vol] 103 mg/dL Normal 74-106 [facility] Comment on above: Performed By: #### L IPID, CMP #### [facility] [address] [address] [address] Ivonne Ojeda Potassium [Moles/Vol] 3.8 mmol/L Normal 3.5-5.1 [facility] Comment on above: Performed By: #### L IPID, CMP #### [facility] [address] [address] [address] Ivonne Ojeda Protein [Mass/Vol] 7.4 g/dL Normal 6.4-8.2 [facility] Comment on above: Performed By: #### L IPID, CMP #### [facility] [address] [address] [address] Ivonne Ojeda Sodium [Moles/Vol] 138 mmol/L Normal 136-145 [facility] Comment on above: Performed By: #### L IPID, CMP #### [facility] [address] [place] [address] Dr. Ivonne Ojeda Urea nitrogen [Mass/Vol] 10.0 mg/dL Normal 7.0-18.0 [facility] Comment on above: Performed By: #### L IPID, CMP #### [facility] [address] [address] [address] Ivonne Ojeda Urea nitrogen/Creatinine [Mass ratio] 10.6 mg/mg Normal [facility] Comment on above: Performed By: #### L IPID, CMP #### [facility] [address] [address] [address] Ivonne Ojeda HAND RIGHT 3 [facility] 9 HAND RIGHT 3 [facility] Department of Radiology [address] [place] [address] Patient Name: LEFTY AMBROCIO : 1975 Sex: M Age: Race: White Pt. Location: Patient Status: O Ordered Date: 07/11/2018 3:25:00 PM Completed Date: 07/11/2018 03:21 PM Requesting Provider: ALMITA NGUYEN Attending Provider: ALIMTA NGUYEN Report Copy To: KAT JACKSON Signs & Symptoms: M79.641 Pain in right hand I10 History: Brittani Comments: , Views (X-RAY, HAND): PA, Lateral, Oblique , Views (X-RAY, HAND): PA, Lateral, Oblique , , , Ordering Provider - ALMITA NGUYEN MD , Exam: HAND RIGHT 3 VWS HAND RIGHT 3 S 07/11/2018 3:21 PM EST SIGNS AND SYMPTOMS: M79.641 Pain in right hand I10 TECHNOLOGIST COMMENTS: Patient has right hand pain. Fractured right hand years ago. QUESTION FOR THE RADIOLOGIST: , Views (X-RAY, HAND): PA, Lateral, Oblique , Views (X-RAY, HAND): PA, Lateral, Oblique , , , Ordering Provider - ALMITA NGUYEN MD , PROTOCOL: AP,Lateral and Oblique views were obtained. COMPARISON: None FINDINGS: Soft tissues: Mild swelling Rounded bony ossicle along the radial side of the index finger MCP joint, loose body versus heterotopic ossification Bones: No definite acute fracture Chip fracture along the ulnar base of the thumb proximal phalanx at the ulnar collateral ligament Old fracture with foreshortening of the ring finger metacarpal Joints: Mild scattered spurring IMPRESSION: 1. No acute bony abnormality 2. 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 Transcribed by: [email or web address], User Resident: Electronically Signed by: MAINE TYSON @ 07/11/2018 04:09 PM Normal [facility] Comment on above: Order Comment: , Jacque ws (X-RAY, HAND): PA, Lateral, Oblique , Views (X-RAY, HAND): PA, Lateral, Oblique , , , Ordering Provider - ALMITA NGUYEN MD , Encounters Encounter Date Encounter Type Care Provider Facility Start: 05-28-2022 End: 05-28-[address] NONE LISTED REQUEST Facility: Start: 05-25-2022 End: 05-25-2022 ambulatory JENNY LAFLEUR Facility:[facility] Start: 05-17-2022 End: 05-17-[address] GABRIELLA STAUFFER Facility:[facility] Start: 02-19-2022 End: 02-19-[address] ZAK SCHMIDT Facility:[facility] Start: 11-24-2021 End: 11-25-2021 ambulatory SHAIKH Hernan MONDRAGONRAMAKRISHNA Facility:[facility] Payers Date Payer Category Payer Unknown [id number] [id number] 1975 Unknown [id number] [id number] [id number] 1975 Unknown [id number] 1975 Unknown [id number] 2.16.84 [id number] 1975 Unknown [id number] 1957 Unknown [id number] Summary Purpose Family History No Family History Records FoundNo Family History Records Found Advance Directives No Advanced Directives Records FoundNo Advanced Directives Records Found Additional Source Comments (unrecognized sect ion and content) No Status Records FoundNo Status Records Found INFORMATION SOURCE (unrecogn ized section and content) DATE CREATED AUTHOR 03/18/[address] [facility] DATE CREATED AUTHOR AUTHOR'S ORGANIZ ATION 05/29/2022 The [facility] FOR RECORDS PERTAINING TO PATIENTS WHO ARE OR HAVE BEEN ENROLLED IN A CHEMICAL DEPENDENCY/SUBSTANCEABUSE PROGRAM, SOME INFORMATION MAY BE OMITTED. This clinical summary was aggregated from multiple sources. Caution should be exercised in using it in the provision of clinical care. This summary normalizes information from multiple sources, and as a consequence, information in this document may materially change the coding, format and clinical context of patient data. In addition, data may be omitted in some cases. CLINICAL DECISIONS SHOULD BE BASED ON THE PRIMARY CLINICAL RECORDS. [facility]. provides no warranty or guarantee of the accuracy or completeness of information in this document.
[2023-09-17 05:36] LABS: Alanine Aminotransferase 38 U/L (16-63); Albumin Globulin Ratio 1.3; Albumin Level 4.3 g/dL (3.4-5.0); Alkaline Phosphatase 71 U/L (46-116); Anion Gap 16.7; Aspartate Amino Transferase 31 U/L (15-37); BUN Creatinine Ratio 13.8; Bilirubin Total 0.9 mg/dL (0.2-1.0); Calcium 9.1 mg/dL (8.5-10.1); Carbon Dioxide 24.9 mmol/L (21.0-32.0); Chloride 100 mmol/L (98-107); Estimated GFR (African America >60 (>=60); Estimated GFR (Non-African Ame >60 (>=60); Globulin 3.3 g/dL; Glucose 104 mg/dL (74-106); Magnesium 1.9 mg/dL (1.8-2.4); Potassium 3.6 mmol/L (3.5-5.1); Sodium 138 mmol/L (136-145); Total Protein 7.6 g/dL (6.4-8.2); Troponin I High Sensitivity 5.6 pg/mL (4.0-76.1)
== END 2023-09-17 07:04 | disposition home or self-care (01) ==
PROVIDERS: Emergency Provider Emergency Medicine
DX: F10.280 Alcohol dependence with alcohol-induced anxiety disorder (principal); I10 Essential (primary) hypertension; G89.29 Other chronic pain; M25.559 Pain in unspecified hip; R25.1 Tremor, unspecified; F12.90 Cannabis use, unspecified, uncomplicated; Z87.891 Personal history of nicotine dependence
CPT/HCPCS: 36415; 80053; 83735; 84484; 85025; 93005; 96361; 96374; 99284

== ENCOUNTER 2023-12-23 08:55 | Outpatient (OUT) | payer SELFPAY ==
--- NOTE | 2023-12-23 09:03 | XR_ITS ---
The [address] [address] Patient Name: LEFTY AMBROCIO MRN: [id number] date: 1975 Sex: M Assigned Patient Location: RAD Current Patient Location: RAD Accession/Order Number: [id number] Exam Date: 12/23/2023 09:10 Report Date: 12/23/2023 09:28 At the request of: AGUILA HERNANDEZ Procedure: XR chest 2V EXAMINATION: XR chest 2V HISTORY: Smoking History Z87.891 , chest congestion COMPARISON: No relevant comparison available. FINDINGS: LUNGS: No significant pulmonary parenchymal abnormalities. VASCULATURE: No increased pulmonary vasculature. PLEURA: No pneumothorax, effusion, or pleural thickening. CARDIAC: No cardiomegaly or cardiac silhouette abnormality. MEDIASTINUM: No visible mass or adenopathy. BONES: No fracture or visible bone lesion. OTHER: Negative. XR/XR chest 2V IMPRESSION: 1. No acute cardiopulmonary process or suspicious findings. Electronically authenticated by: ARTURO CISSE Date: 12/23/2023 09:28
--- OUTSIDE RECORDS SUMMARY | 2023-12-23 09:08 | XMS_ITS | CCD ---
Author Organization [facility] Inform ion [facility] Care Team Providers Care Staff Physician Name Role Phone REQUEST, DR WILBER LISTED Primary Care Unavaila ble HAY, DR CRESPO Admitting Unavailable HAY, DR CRESPO Attending Unavailable HAY, DR CRESPO Consulting Unavailable JENNY LAFLEUR Admitting Unavailable JENNY LAFLEUR Attending Unavailable JENNY LAFLEUR Consulting Unavailable REQUEST, DR MERINO LISTED Primary Care Unavaila ble EH, DR GABRIELLA Patel Consulting Unavailabl e FAWWILL, NG H Primary Care Unavailable EH, DR [...] source) Acetaminophen Drug Allergy [facility] Repository (1 source) black walnut pollen extract Drug Allergy [facility] Rep[facility] (1 source) Naproxen Drug Allergy [facility] Rep[facility] (1 source) Niacin Drug Allergy [facility] Rep[facility] Problems Active Problems Problem Classification Problem [...] 11-24-2021 Chronic Other aftercare (1 source) Other fci (current) drug therapy; 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 Ivonne Ojeda Basophils/100 WBC (Bld) 0.6 % Normal 0.2-2.0 [facility] Comment on above: Performed By: #### C BC #### [facility] Laboratory [address] [place] [address] Dr. Ivonne Ojeda EO # 0.0 103/ul Normal 0.0-0.7 [facility] Comment on above: Performed By: #### C BC #### [facility] [address] [place] [address] Dr. Ivonne Ojeda Eosinophils/100 WBC (Bld) 0.8 % Critically low 0.9-7.0 [facility] Comment on above: Performed By: #### C BC #### [facility] [address] [place] [address] Dr. Ivonne Ojeda Erythrocyte distribution width (RBC) [Ratio] 12.3 % Normal 11.0-15.0 [facility] Comment on above: Performed By: #### C BC #### [facility] [address] [place] [address] Dr. Ivonne Ojeda Hematocrit (Bld) [Volume fraction] 44.0 % Normal 42.0-54.0 [facility] Comment on above: Performed By: #### C BC #### [facility] [address] [place] [address] Dr. Ivonne Ojeda Hemoglobin (Bld) [Mass/Vol] 15.0 g/dL Normal 14.0-18.0 [facility] Comment on above: Performed By: #### C BC #### [facility] [address] [place] [address] Dr. Ivonne Ojeda IG # 0.02 10e3/ul Normal 0.00-0.03 [facility] Comment on above: Performed By: #### C BC #### [facility] [address] [place] [address] Dr. Ivonne Ojeda IG % 0.4 % Normal 0.0-0.5 [facility] Comment on above: Performed By: #### C BC #### [facility] Laboratory [address] [address] [address] Ivonne Ojeda LYMPH # 1.0 103/ul Critically low 1.2-3.8 [facility] Comment on above: Performed By: #### C BC #### [facility] [address] [address] [address] Ivonne Ojeda Lymphocytes/100 WBC (Bld) 18.7 % Critically low 20.5-60.0 [facility] Comment on above: Performed By: #### C BC #### [facility] [address] [place] [address] Dr. Ivonne Ojeda MANUAL DIFF REQ NO Normal [facility] Comment on above: Performed By: #### C BC #### [facility] [address] [place] [address] Dr. Ivonne Ojeda MCH (RBC) [Entitic mass] 33.6 pg Normal 25.9-34.0 [facility] Comment on above: Performed By: #### C BC #### [facility] [address] [place] [address] Dr. Ivonne Ojeda MCHC (RBC) [Mass/Vol] 34.1 g/dL Normal 29.9-35.2 [facility] Comment on above: Performed By: #### C BC #### [facility] [address] [place] [address] Dr. Ivonne Ojeda MCV (RBC) [Entitic vol] 98.7 fL Critically high 80.0-94.0 [facility] Comment on above: Performed By: #### C BC #### [facility] [address] [place] [address] Dr. Ivonne Ojeda MONO # 0.4 103/ul Normal 0.3-0.8 [facility] Comment on above: Performed By: #### C BC #### [facility] [address] [place] [address] Dr. Ivonne Ojeda Monocytes/100 WBC (Bld) 7.1 % Normal 1.7-12.0 [facility] Comment on above: Performed By: #### C BC #### [facility] [address] [address] [address] Ivonne Ojeda NEUT # 3.8 103/ul Normal 1.4-6.5 [facility] Comment on above: Performed By: #### C BC #### [facility] [address] [address] [address] Ivonne Ojeda Neutrophils/100 WBC (Bld) 72.4 % Normal 43.0-75.0 [facility] Comment on above: Performed By: #### C BC #### [facility] [address] [place] [address] Dr. Ivonne Ojeda Platelet mean volume (Bld) [Entitic vol] 9.8 fL Normal 9.5-13.5 [facility] Comment on above: Performed By: #### C BC #### [facility] [address] [place] [address] Dr. Ivonne Ojeda PLT 256 103/ul Normal 150-450 [facility] Comment on above: Performed By: #### C BC #### [facility] [address] [place] [address] Dr. Ivonne Ojeda RBC 4.46 106/ul Critically low 4.70-6.10 [facility] Comment on above: Performed By: #### C BC #### [facility] [address] [place] [address] Dr. Ivonne Ojeda WBC 5.2 103/ul Normal 4.0-11.0 [facility] Comment on above: Performed By: #### C BC #### [facility] [address] [place] [address] Dr. Ivonen Ojeda PROF CHEM 8 (BAS METB)on Anion gap [Moles/Vol] 13.4 mmol/L Normal [facility] Comment on above: Performed By: #### B MP, TSH #### [facility] [address] [place] [address] Dr. Ivonne Ojeda Calcium [Mass/Vol] 8.8 mg/dL Normal 8.5-10.1 [facility] Comment on above: Performed By: #### B MP, TSH #### [facility] [address] [address] [address] Ivonne Ojeda Chloride [Moles/Vol] 104 mmol/L Normal 98-107 [facility] Comment on above: Performed By: #### B MP, TSH #### [facility] [address] [place] [address] Dr. Ivonne Ojeda CO2 [Moles/Vol] 22.4 mmol/L Normal 21.0-32.0 [facility] Comment on above: Performed By: #### B MP, TSH #### [facility] [address] [place] [address] Dr. Ivonne Ojeda Creatinine [Mass/Vol] 0.92 mg/dL Normal 0.70-1.30 [facility] Comment on above: Performed By: #### B JONNY, TSH #### [facility] [address] [place] [address] Dr. Ivonne Ojeda EGFR-AF CAMBODIAN >60 Normal >=60 [facility] Comment on above: Performed By: #### B JONNY, TSH #### [facility] [address] [place] [address] Dr. Ivonne Ojeda EGFR-NON AF CAMBODIAN >60 Normal >=60 [facility] Comment on above: Performed By: #### B JONNY, TSH #### [facility] [address] [place] [address] Dr. Ivonne Ojeda Glucose [Mass/Vol] 96 mg/dL Normal 74-106 [facility] Comment on above: Performed By: #### B JONNY, TSH #### [facility] [address] [address] [address] Ivonne Ojeda Potassium [Moles/Vol] 3.8 mmol/L Normal 3.5-5.1 [facility] Comment on above: Performed By: #### B JONNY, TSH #### [facility] [address] [place] [address] Dr. Ivonne Ojeda Sodium [Moles/Vol] 136 mmol/L Normal 136-145 [facility] Comment on above: Performed By: #### B JONNY, TSH #### [facility] [address] [place] [address] Dr. Ivonne Ojeda Urea nitrogen [Mass/Vol] 10.0 mg/dL Normal 7.0-18.0 [facility] Comment on above: Performed By: #### B MP, TSH #### [facility] [address] [place] [address] Dr. Ivonne Ojeda Urea nitrogen/Creatinine [Mass ratio] 10.9 mg/mg Normal [facility] Comment on above: Performed By: #### B MP, TSH #### [facility] [address] [place] [address] Dr. Ivonne Ojeda TSHon 02-19-2022 TSH 0.781 uIU/mL Normal 0.358-3.[address] [facility] Comment on above: Performed By: #### B MP, TSH #### [facility] [address] [place] [address] Dr. Ivonne Ojeda CBC AUTO DIFFon 11-24-2021 BASO # 0.0 103/ul Normal 0.0-0.1 [facility] Comment on above: Performed By: #### C BC #### [facility] [address] [place] [address] Dr. Ivonne Ojeda Basophils/100 WBC (Bld) 0.5 % Normal 0.2-2.0 [facility] Comment on above: Performed By: #### C BC #### [facility] [address] [place] [address] Dr. Ivonne Ojeda EO # 0.2 103/ul Normal 0.0-0.7 [facility] Comment on above: Performed By: #### C BC #### [facility] [address] [place] [address] Dr. Ivonne Ojeda Eosinophils/100 WBC (Bld) 2.0 % Normal 0.9-7.0 [facility] Comment on above: Performed By: #### C BC #### [facility] [address] [place] [address] Dr. Ivonne Ojeda Erythrocyte distribution width (RBC) [Ratio] 12.8 % Normal 11.0-15.0 [facility] Comment on above: Performed By: #### C BC #### [facility] [address] [place] [address] Dr. Ivonne Ojeda Hematocrit (Bld) [Volume fraction] 42.4 % Normal 42.0-54.0 [facility] Comment on above: Performed By: #### C BC #### [facility] [address] [place] [address] Dr. Ivonne Ojeda Hemoglobin (Bld) [Mass/Vol] 14.5 g/dL Normal 14.0-18.0 [facility] Comment on above: Performed By: #### C BC #### [facility] [address] [place] [address] Dr. Ivonne Ojeda IG # 0.02 10e3/ul Normal 0.00-0.03 [facility] Comment on above: Performed By: #### C BC #### [facility] [address] [place] [address] Dr. Ivonne Ojeda IG % 0.2 % Normal 0.0-0.5 [facility] Comment on above: Performed By: #### C BC #### [facility] [address] [place] [address] Dr. Ivonne Ojeda LYMPH # 1.7 103/ul Normal 1.2-3.8 [facility] Comment on above: Performed By: #### C BC #### [facility] [address] [place] [address] Dr. Ivonne Ojeda Lymphocytes/100 WBC (Bld) 19.6 % Critically low 20.5-60.0 [facility] Comment on above: Performed By: #### C BC #### [facility] [address] [place] [address] Dr. Ivonne Ojeda MANUAL DIFF REQ NO Normal [facility] Comment on above: Performed By: #### C BC #### [facility] [address] [place] [address] Dr. Ivonne Ojeda MCH (RBC) [Entitic mass] 32.8 pg Normal 25.9-34.0 [facility] Comment on above: Performed By: #### C BC #### [facility] [address] [place] [address] Dr. Ivonne Ojeda MCHC (RBC) [Mass/Vol] 34.2 g/dL Normal 29.9-35.2 [facility] Comment on above: Performed By: #### C BC #### [facility] [address] [place] [address] Dr. Ivonne Ojeda MCV (RBC) [Entitic vol] 95.9 fL Critically high 80.0-94.0 [facility] Comment on above: Performed By: #### C BC #### [facility] [address] [place] [address] Dr. Ivonne Ojeda MONO # 0.6 103/ul Normal 0.3-0.8 [facility] Comment on above: Performed By: #### C BC #### [facility] [address] [place] [address] Dr. Ivonne Ojeda Monocytes/100 WBC (Bld) 6.7 % Normal 1.7-12.0 [facility] Comment on above: Performed By: #### C BC #### [facility] [address] [place] [address] Dr. Ivonne Ojeda NEUT # 6.0 103/ul Normal 1.4-6.5 [facility] Comment on above: Performed By: #### C BC #### [facility] [address] [place] [address] Dr. Ivonne Ojeda Neutrophils/100 WBC (Bld) 71.0 % Normal 43.0-75.0 [facility] Comment on above: Performed By: #### C BC #### [facility] [address] [place] [address] Dr. Ivonne Ojeda Platelet mean volume (Bld) [Entitic vol] 10.4 fL Normal 9.5-13.5 [facility] Comment on above: Performed By: #### C BC #### [facility] [address] [place] [address] Dr. Ivonne Ojeda PLT 248 103/ul Normal 150-450 [facility] Comment on above: Performed By: #### C BC #### [facility] [address] [place] [address] Dr. Ivonne Ojeda RBC 4.42 106/ul Critically low 4.70-6.10 [facility] Comment on above: Performed By: #### C BC #### [facility] [address] [place] [address] Dr. Ivonne Ojeda WBC 8.5 103/ul Normal 4.0-11.0 [facility] Comment on above: Performed By: #### C BC #### [facility] [address] [address] [address] Ivonne Ojeda GLYCOHEMOGLOBIN A1Con 2021 ADA RECOMMENDATION SEE BELOW Normal [facility] Comment on above: Result Comment: ADA RECOMMENDED LIMIT 4.0 - 6.0 ADA THERAPEUTIC TARGET < 7.0 ACTION SUGGESTED > 7.0 Performed By: #### A 1C #### [facility] [address] [place] [address] Dr. Ivonne Ojeda Glucose [Mass/Vol] 105 mg/dL Normal [facility] Comment on above: Performed By: #### A 1C #### [facility] [address] [place] [address] Dr. Ivonne Ojeda HbA1c (Bld) [Mass fraction] 5.3 % Normal 4.5-6.2 [facility] Comment on above: Performed By: #### A 1C #### [facility] [address] [place] [address] Dr. Ivonne Ojeda LIPID PROFILEon 11-24-2021 CHOL-HDL RATIO NORM SEE BELOW Normal [facility] Comment on above: Result Comment: 3.3 - 4.4 LOW RISK 4.4 - 7.1 AVERAGE RISK 7.1 - 11.0 MODERATE RISK >11.0 HIGH RISK Performed By: #### L IPID, CMP #### [facility] [address] [place] [address] Dr. Ivonne Ojeda Cholesterol [Mass/Vol] 309 mg/dL Critically high <=200 [facility] Comment on above: Performed By: #### L IPID, CMP #### [facility] [address] [place] [address] Dr. Ivonne Ojeda Cholesterol in HDL [Mass/Vol] 53 mg/dL Normal 40-60 [facility] Comment on above: Performed By: #### L IPID, CMP #### [facility] [address] [address] [address] Ivonne Ojeda Cholesterol in LDL [Mass/Vol] 224.6 mg/dL Normal [facility] Comment on above: Performed By: #### L IPID, CMP #### [facility] [address] [address] [address] Ivonne Ojeda Cholesterol.total/Ch olesterol in HDL [Mass ratio] 5.8 {ratio} Normal [facility] Comment on above: Performed By: #### L IPID, CMP #### [facility] [address] [place] [address] Dr. Ivonne Ojeda HDL NORMAL > or = 60 mg/dl - LOW CARDIOVASCULAR RISK <40 mg/dl - HIGH CARDIOVASCULAR RISK Normal [facility] Comment on above: Performed By: #### L IPID, CMP #### [facility] [address] [place] [address] Dr. Ivonne Ojeda LDL CALC NORMAL SEE BELOW Normal [facility] Comment on above: Result Comment: <100 mg/dl OPTIMAL 100 - 129 mg/dl NEAR OR ABOVE OPTIMAL 130 - 159 mg/dl BORDERLINE HIGH 160 - 189 mg/dl HIGH >190 mg/dl VERY HIGH Performed By: #### L IPID, CMP #### [facility] [address] [place] [address] Dr. Ivonne Ojeda Triglyceride [Mass/Vol] 157 mg/dL Critically high <=150 [facility] Comment on above: Performed By: #### L IPID, CMP #### [facility] [address] [place] [address] Dr. Ivonne Ojeda VLDL CALC 31.4 mg/dL Normal [facility] Comment on above: Performed By: #### L IPID, CMP #### [facility] [address] [place] [address] Dr. Ivonne Ojeda PROF 14(COMP METB)on 022 Albumin [Mass/Vol] 3.8 g/dL Normal 3.4-5.0 [facility] Comment on above: Performed By: #### L IPID, CMP #### [facility] [address] [address] [address] Ivonne Ojeda Albumin/Globulin [Mass ratio] 1.1 {ratio} Normal [facility] Comment on above: Performed By: #### L IPID, CMP #### [facility] [address] [address] [address] Ivonne Ojeda ALP [Catalytic activity/Vol] 76 U/L Normal 46-116 [facility] Comment on above: Performed By: #### L IPID, CMP #### [facility] [address] [address] [address] Ivonne Ojeda ALT [Catalytic activity/Vol] 43 U/L Normal 16-63 [facility] Comment on above: Performed By: #### L IPID, CMP #### [facility] [address] [address] [address] Ivonne Ojeda Anion gap [Moles/Vol] 11.9 mmol/L Normal [facility] Comment on above: Performed By: #### L IPID, CMP #### [facility] [address] [address] [address] Ivonne Ojeda AST [Catalytic activity/Vol] 30 U/L Normal 15-37 [facility] Comment on above: Performed By: #### L IPID, CMP #### [facility] [address] [address] [address] Ivonne Ojeda Bilirubin [Mass/Vol] 0.5 mg/dL Normal 0.2-1.0 [facility] Comment on above: Performed By: #### L IPID, CMP #### [facility] [address] [address] [address] Ivonne Ojeda Calcium [Mass/Vol] 8.9 mg/dL Normal 8.5-10.1 [facility] Comment on above: Performed By: #### L IPID, CMP #### [facility] [address] [address] [address] Ivonne Ojeda Chloride [Moles/Vol] 102 mmol/L Normal 98-107 [facility] Comment on above: Performed By: #### L IPID, CMP #### [facility] [address] [address] [address] Ivonne Ojeda CO2 [Moles/Vol] 27.9 mmol/L Normal 21.0-32.0 [facility] Comment on above: Performed By: #### L IPID, CMP #### [facility] [address] [address] [address] Ivonne Ojeda Creatinine [Mass/Vol] 0.94 mg/dL Normal 0.70-1.30 [facility] Comment on above: Performed By: #### L IPID, CMP #### [facility] [address] [address] [address] Ivonne Ojeda EGFR-AF CAMBODIAN >60 Normal >=60 [facility] Comment on above: Performed By: #### L IPID, CMP #### [facility] [address] [address] [address] Ivonne Ojeda EGFR-NON AF CAMBODIAN >60 Normal >=60 [facility] Comment on above: Performed By: #### L IPID, CMP #### [facility] [address] [address] [address] Ivonne Ojeda Globulin (S) [Mass/Vol] 3.6 g/dL Normal [facility] Comment on above: Performed By: #### L IPID, CMP #### [facility] [address] [address] [address] Ivonne Ojeda Glucose [Mass/Vol] 103 mg/dL Normal 74-106 [facility] Comment on above: Performed By: #### L IPID, CMP #### [facility] [address] [address] [address] Ivonne Ojeda Potassium [Moles/Vol] 3.8 mmol/L Normal 3.5-5.1 [facility] Comment on above: Performed By: #### L IPID, CMP #### [facility] [address] [address] [address] Ivonne Ojeda Protein [Mass/Vol] 7.4 g/dL Normal 6.4-8.2 [facility] Comment on above: Performed By: #### L IPID, CMP #### [facility] [address] [address] [address] Ivonne Ojeda Sodium [Moles/Vol] 138 mmol/L Normal 136-145 [facility] Comment on above: Performed By: #### L IPID, CMP #### [facility] [address] [address] [address] Ivonne Ojeda Urea nitrogen [Mass/Vol] 10.0 mg/dL Normal 7.0-18.0 [facility] Comment on above: Performed By: #### L IPID, CMP #### [facility] [address] [address] [address] Ivonne Ojeda Urea nitrogen/Creatinine [Mass ratio] 10.6 mg/mg Normal [facility] Comment on above: Performed By: #### L IPID, CMP #### [facility] [address] [address] [address] Ivonne Ojeda HAND RIGHT 3 Son 9 HAND RIGHT 3 S [facility] Department of Radiology [address] [place] [id number] Patient Name: LEFTY AMBROCIO : 1975 Sex: M Age: Race: White Pt. Location: Patient Status: O Ordered Date: 07/11/2018 3:25:00 PM Completed Date: 07/11/2018 03:21 PM Requesting Provider: ALMITA NGUYEN Attending Provider: ALMITA NGUYEN Report Copy To: KAT JACKSON Signs & Symptoms: M79.641 Pain in right hand I10 History: Brittnai Comments: , Views (X-RAY, HAND): PA, Lateral, [...] latter Electronically signed by:Maine Tyson. Transcribed by: [email or web address], User Resident: Electronically Signed by: MAINE TYSON @ 07/11/2018 04:09 PM Normal [facility] Comment on above: Order Comment: , Jacque ws (X-RAY, HAND): PA, Lateral, Oblique , Views (X-RAY, HAND): PA, Lateral, Oblique , , , Ordering Provider - ALMITA NGUYEN MD , Encounters Encounter Date Encounter Type Care Provider Facility Start: 05-28-2022 End: 05-28-[address] NONE LISTED REQUEST Facility:[facility] Start: 05-25-2022 End: 05-25-2022 ambulatory JENNY LAFLEUR Facility:[facility] Start: 05-17-2022 End: 05-17-[address] GABRIELLA STAUFFER Facility:[facility] Start: 02-19-2022 End: 02-19-[address] ZAK SCHMIDT Facility:[facility] Start: 11-24-2021 End: 11-25-2021 ambulatory SHAIKH Hernan FIGUEROASong Facility:[facility] Payers Date Payer Category Payer Unknown [id number] 2.16.84 [id number] 1977 Unknown [id number] 2.16.84 [id number] 1977 Unknown [id number] 2.16.84 [id number] 1977 Unknown [id number] 2.16.84 [id number] 1977 Unknown [id number] 2.16.84 [id number] 1959 Unknown [id number] Summary Purpose Family History No Family History Records FoundNo Family History Records Found Advance Directives No Advanced Directives Records FoundNo Advanced Directives Records Found Additional Source Comments (unrecognized sect ion and content) No Status Records FoundNo Status Records Found INFORMATION SOURCE (unrecogn ized section and content) DATE CREATED AUTHOR 03/18/2019 [facility] DATE CREATED AUTHOR AUTHOR'S ORGANIZ ATION 05/29/2022 [facility] FOR RECORDS PERTAINING TO PATIENTS WHO ARE [...] BE BASED ON THE PRIMARY CLINICAL RECORDS. [facility] [employer] [facility]. provides no warranty or guarantee of the accuracy or completeness of information in this document.
== END 2023-12-23 08:56 | disposition home or self-care (01) ==
PROVIDERS: PCP Nurse Practitioner Family; Visit Provider Nurse Practitioner Family
DX: Z87.891 Personal history of nicotine dependence (principal)
CPT/HCPCS: 71046

== ENCOUNTER 2024-06-26 12:36 | Emergency (ER) | payer SELFPAY ==
[2024-06-26 12:46] VITALS: BP 190/100; PULSE 99; TEMP 36.9; O2SAT 98; BMI 24.3
--- OUTSIDE RECORDS SUMMARY | 2024-06-26 12:52 | XMS_ITS | CCD ---
Author Organization [facility] Inform ion [facility] Care Team Providers Care [employer] Name Role Phone REQUEST, DR WILBER LISTED Primary Care Unavaila ble HAY, DR CRESPO Admitting Unavailable HAY, DR CRESPO Attending Unavailable HAY, DR CRESPO Consulting Unavailable JENNY LAFLEUR Admitting Unavailable JENNY LAFLEUR Attending Unavailable JENNY LAFLEUR Consulting Unavailable REQUEST, DR MERINO LISTED Primary Care Unavaila ble HE, DR GABRIELLA Patel Consulting Unavailabl e FAWWILL, [...] Facility (1 source) Acetaminophen Drug Allergy [facility] Repository (1 source) black walnut pollen extract Drug Allergy [facility] Repository (1 source) Naproxen Drug Allergy [facility] Repository (1 source) Niacin Drug Allergy [facility] Repository Problems Active Problems Problem Classification Problem [...] 11-24-2021 Chronic Other aftercare (1 source) Other senior care (current) drug therapy; Translations: [OTH RETIREMENT CURRENT DRUG THERAPY] Onset: 05-27-2022 Episodic Substance-related [...] MAINE SUN Date: 2022-05-17 13:37 Normal [facility] CBC AUTO DIFFon 02-19-2022 BASO # 0.0 103/ul Normal 0.0-0.1 [facility] Comment on above: Performed By: #### C #### [facility] [address] [place] [address] Dr. Ivonne Ojeda Basophils/100 WBC (Bld) 0.6 % Normal 0.2-2.0 [facility] Comment on above: Performed By: #### C BC #### [facility] [address] [place] [address] Dr. Ivonne Ojeda EO # 0.0 103/ul Normal 0.0-0.7 [facility] Comment on above: Performed By: #### C BC #### [facility] [address] [place] [address] Dr. Ivonne Ojeda Eosinophils/100 WBC (Bld) 0.8 % Critically low 0.9-7.0 [facility] Comment on above: Performed By: #### C BC #### [facility] [address] [place] [address] Dr. Ivonne Ojeda Erythrocyte distribution width (RBC) [Ratio] 12.3 % Normal 11.0-15.0 [facility] Comment on above: Performed By: #### C BC #### [facility] [address] [place] [address] Dr. Ivonne Ojeda Hematocrit (Bld) [Volume fraction] 44.0 % Normal 42.0-54.0 [facility] Comment on above: Performed By: #### C BC #### [facility] [address] [place] [address] Dr. Ivonne Ojeda Hemoglobin (Bld) [Mass/Vol] 15.0 g/dL Normal 14.0-18.0 [facility] Comment on above: Performed By: #### C BC #### [facility] [address] [place] [address] Dr. Ivonne Ojeda IG # 0.02 10e3/ul Normal 0.00-0.03 [facility] Comment on above: Performed By: #### C BC #### [facility] [address] [place] [address] Dr. Ivonne Ojeda IG % 0.4 % Normal 0.0-0.5 [facility] Comment on above: Performed By: #### C BC #### [facility] [address] [address] [address] Ivonne Ojeda LYMPH # 1.0 103/ul Critically low 1.2-3.8 [facility] Comment on above: Performed By: #### C BC #### [facility] [address] [address] [address] Ivonne Ojeda Lymphocytes/100 WBC (Bld) 18.7 % Critically low 20.5-60.0 [facility] Comment on above: Performed By: #### C BC #### [facility] [address] [place] [address] Dr. Ivonne Ojeda MANUAL DIFF REQ NO Normal [facility] Comment on above: Performed By: #### C BC #### [facility] [address] [place] [address] Dr. Ivonne Ojeda MCH (RBC) [Entitic mass] 33.6 pg Normal 25.9-34.0 [facility] Comment on above: Performed By: #### C BC #### [facility] [address] [place] [address] Dr. Ivonne Ojeda MCHC (RBC) [Mass/Vol] 34.1 g/dL Normal 29.9-35.2 [facility] Comment on above: Performed By: #### C BC #### [facility] [address] [place] [address] Dr. Ivonne Ojeda MCV (RBC) [Entitic vol] 98.7 fL Critically high 80.0-94.0 [facility] Comment on above: Performed By: #### C BC #### [facility] [address] [place] [address] Dr. Ivonne Ojeda MONO # 0.4 103/ul Normal 0.3-0.8 [facility] Comment on above: Performed By: #### C BC #### [facility] [address] [place] [address] Dr. Ivonne Ojeda Monocytes/100 WBC (Bld) 7.1 % Normal 1.7-12.0 [facility] Comment on above: Performed By: #### C BC #### [facility] [address] [address] [address] Ivonne Ojeda NEUT # 3.8 103/ul Normal 1.4-6.5 [facility] Comment on above: Performed By: #### C BC #### [facility] [address] [address] [address] Ivonne Ojeda Neutrophils/100 WBC (Bld) 72.4 % Normal 43.0-75.0 [facility] Comment on above: Performed By: #### C BC #### [facility] [address] [place] [address] Dr. Ivonne Ojeda Platelet mean volume (Bld) [Entitic vol] 9.8 fL Normal 9.5-13.5 [facility] Comment on above: Performed By: #### C BC #### [facility] [address] [place] [address] Dr. Ivonne Ojeda PLT 256 103/ul Normal 150-450 [facility] Comment on above: Performed By: #### C BC #### [facility] [address] [place] [address] Dr. Ivonne Ojeda RBC 4.46 106/ul Critically low 4.70-6.10 [facility] Comment on above: Performed By: #### C BC #### [facility] [address] [place] [address] Dr. Ivonne Ojeda WBC 5.2 103/ul Normal 4.0-11.0 [facility] Comment on above: Performed By: #### C BC #### [facility] [address] [place] [address] Dr. Ivonne Ojeda PROF CHEM 8 (BAS METB)on Anion gap [Moles/Vol] 13.4 mmol/L Normal [facility] Comment on above: Performed By: #### B MP, TSH #### [facility] [address] [place] [address] Dr. Ivonne Ojeda Calcium [Mass/Vol] 8.8 mg/dL Normal 8.5-10.[address] [facility] Comment on above: Performed By: #### B MP, TSH #### [facility] [address] [address] [address] Ivonne Ojeda Chloride [Moles/Vol] 104 mmol/L Normal 98-107 [facility] Comment on above: Performed By: #### B MP, TSH #### [facility] [address] [place] [address] Dr. Ivonne Ojeda CO2 [Moles/Vol] 22.4 mmol/L Normal 21.0-32.0 [facility] Comment on above: Performed By: #### B MP, TSH #### [facility] [address] [place] [address] Dr. Ivonne Ojeda Creatinine [Mass/Vol] 0.92 mg/dL Normal 0.70-1.30 [facility] Comment on above: Performed By: #### B JONNY, TSH #### [facility] [address] [place] [address] Dr. Ivonne Ojeda EGFR-AF HUNGARIAN >60 Normal >=60 [facility] Comment on above: Performed By: #### B JONNY, TSH #### [facility] [address] [place] [address] Dr. Ivonne Ojeda EGFR-NON AF HUNGARIAN >60 Normal >=60 [facility] Comment on above: Performed By: #### B JONNY, TSH #### [facility] [address] [place] [address] Dr. Ivonne Ojeda Glucose [Mass/Vol] 96 mg/dL Normal 74-[address] [facility] Comment on above: Performed By: #### B JONNY, TSH #### [facility] [address] [address] [address] Ivonne Ojeda Potassium [Moles/Vol] 3.8 mmol/L Normal 3.5-5.1 [facility] Comment on above: Performed By: #### B JONNY, TSH #### [facility] [address] [place] [address] Dr. Ivonne Ojeda Sodium [Moles/Vol] 136 mmol/L Normal 136-[address] [facility] Comment on above: Performed By: #### B JONNY, TSH #### [facility] [address] [place] [address] Dr. Ivonne Ojeda Urea nitrogen [Mass/Vol] 10.0 mg/dL Normal 7.0-18.0 [facility] Comment on above: Performed By: #### B MP, TSH #### [facility] [address] [place] [address] Dr. Ivonne Ojeda Urea nitrogen/Creatinine [Mass ratio] 10.9 mg/mg Normal [facility] Comment on above: Performed By: #### B MP, TSH #### [facility] [address] [place] [address] Dr. Ivonne Ojeda TSHon 02-19-2022 TSH 0.781 uIU/mL Normal 0.358-3.[address] [facility] Comment on above: Performed By: #### B MP, TSH #### [facility] [address] [place] [address] Dr. Ivonne Ojeda CBC AUTO DIFFon 11-24-2021 BASO # 0.0 103/ul Normal 0.0-0.1 [facility] Comment on above: Performed By: #### C BC #### [facility] [address] [place] [address] Dr. Ivonne Ojeda Basophils/100 WBC (Bld) 0.5 % Normal 0.2-2.0 [facility] Comment on above: Performed By: #### C BC #### [facility] [address] [place] [address] Dr. Ivonne Ojeda EO # 0.2 103/ul Normal 0.0-0.7 [facility] Comment on above: Performed By: #### C BC #### [facility] [address] [place] [address] Dr. Ivonne Ojeda Eosinophils/100 WBC (Bld) 2.0 % Normal 0.9-7.0 [facility] Comment on above: Performed By: #### C BC #### [facility] [address] [place] [address] Dr. Ivonne Ojeda Erythrocyte distribution width (RBC) [Ratio] 12.8 % Normal 11.0-15.0 [facility] Comment on above: Performed By: #### C BC #### [facility] [address] [place] [address] Dr. Ivonne Ojeda Hematocrit (Bld) [Volume fraction] 42.4 % Normal 42.0-54.0 [facility] Comment on above: Performed By: #### C BC #### [facility] [address] [place] [address] Dr. Ivonne Ojeda Hemoglobin (Bld) [Mass/Vol] 14.5 g/dL Normal 14.0-18.0 [facility] Comment on above: Performed By: #### C BC #### [facility] [address] [place] [address] Dr. Ivonne Ojeda IG # 0.02 10e3/ul Normal 0.00-0.03 [facility] Comment on above: Performed By: #### C BC #### [facility] [address] [place] [address] Dr. Ivonne Ojeda IG % 0.2 % Normal 0.0-0.5 [facility] Comment on above: Performed By: #### C BC #### [facility] [address] [place] [address] Dr. Ivonne Ojeda LYMPH # 1.7 103/ul Normal 1.2-3.8 [facility] Comment on above: Performed By: #### C BC #### [facility] [address] [place] [address] Dr. Ivonne Ojeda Lymphocytes/100 WBC (Bld) 19.6 % Critically low 20.5-60.0 [facility] Comment on above: Performed By: #### C BC #### [facility] [address] [place] [address] Dr. Ivonne Ojeda MANUAL DIFF REQ NO Normal [facility] Comment on above: Performed By: #### C BC #### [facility] [address] [place] [address] Dr. Ivonne Ojeda MCH (RBC) [Entitic mass] 32.8 pg Normal 25.9-34.0 [facility] Comment on above: Performed By: #### C BC #### [facility] [address] [place] [address] Dr. Ivonne Ojeda MCHC (RBC) [Mass/Vol] 34.2 g/dL Normal 29.9-35.2 [facility] Comment on above: Performed By: #### C BC #### [facility] [address] [place] [address] Dr. Ivonne Ojeda MCV (RBC) [Entitic vol] 95.9 fL Critically high 80.0-94.0 [facility] Comment on above: Performed By: #### C BC #### [facility] [address] [place] [address] Dr. Ivonne Ojeda MONO # 0.6 103/ul Normal 0.3-0.8 [facility] Comment on above: Performed By: #### C BC #### [facility] [address] [place] [address] Dr. Ivonne Ojeda Monocytes/100 WBC (Bld) 6.7 % Normal 1.7-12.0 [facility] Comment on above: Performed By: #### C BC #### [facility] [address] [place] [address] Dr. Ivonne Ojeda NEUT # 6.0 103/ul Normal 1.4-6.5 [facility] Comment on above: Performed By: #### C BC #### [facility] [address] [place] [address] Dr. Ivonne Ojeda Neutrophils/100 WBC (Bld) 71.0 % Normal 43.0-75.0 [facility] Comment on above: Performed By: #### C BC #### [facility] [address] [place] [address] Dr. Ivonne Ojeda Platelet mean volume (Bld) [Entitic vol] 10.4 fL Normal 9.5-13.5 [facility] Comment on above: Performed By: #### C BC #### [facility] [address] [place] [address] Dr. Ivonne Ojeda PLT 248 103/ul Normal 150-450 [facility] Comment on above: Performed By: #### C BC #### [facility] [address] [place] [address] Dr. Ivonne Ojeda RBC 4.42 106/ul Critically low 4.70-6.10 [facility] Comment on above: Performed By: #### C BC #### [facility] [address] [place] [address] Dr. Ivonne Ojeda WBC 8.5 103/ul Normal 4.0-11.0 [facility] Comment on above: Performed By: #### C BC #### [facility] [address] [address] [address] Ivonne Ojeda GLYCOHEMOGLOBIN A1Con 2021 ADA RECOMMENDATION SEE BELOW Normal [facility] Comment on above: Result Comment: ADA RECOMMENDED LIMIT 4.0 - 6.0 ADA THERAPEUTIC TARGET < 7.0 ACTION SUGGESTED > 7.0 Performed By: #### A 1C #### [facility] [address] [place] [address] Dr. Ivonne Ojeda Glucose [Mass/Vol] 105 mg/dL Normal [facility] Comment on above: Performed By: #### A 1C #### [facility] [address] [place] [address] Dr. Ivonne Ojeda HbA1c (Bld) [Mass fraction] 5.3 % Normal 4.5-6.2 [facility] Comment on above: Performed By: #### A 1C #### [facility] [address] [place] [address] Dr. Ivonne Ojeda LIPID PROFILEon 11-24-2021 CHOL-HDL RATIO NORM SEE BELOW Normal [facility] Comment on above: Result Comment: 3.3 - 4.4 LOW RISK 4.4 - 7.1 AVERAGE RISK 7.1 - 11.0 MODERATE RISK >11.0 HIGH RISK Performed By: #### L IPID, CMP #### [facility] [address] [place] [address] Dr. Ivonne Ojeda Cholesterol [Mass/Vol] 309 mg/dL Critically high <=200 [facility] Comment on above: Performed By: #### L IPID, CMP #### [facility] [address] [place] [address] Dr. Ivonne Ojeda Cholesterol in HDL [Mass/Vol] 53 mg/dL Normal 40-60 [facility] Comment on above: Performed By: #### L IPID, CMP #### [facility] [address] [address] [address] Ivonne Ojeda Cholesterol in LDL [Mass/Vol] 224.6 mg/dL Normal [facility] Comment on above: Performed By: #### L IPID, CMP #### [facility] [address] [address] [address] Ivonne Ojeda Cholesterol.total/Ch olesterol in HDL [Mass ratio] 5.8 {ratio} Normal [facility] Comment on above: Performed By: #### L IPID, CMP #### [facility] [address] [place] [address] Dr. Ivonne Ojeda HDL NORMAL > or = 60 mg/dl - LOW CARDIOVASCULAR RISK <40 mg/dl - HIGH CARDIOVASCULAR RISK Normal [facility] Comment on above: Performed By: #### L IPID, CMP #### [facility] [address] [place] [address] Dr. Ivonne Ojeda LDL CALC NORMAL SEE BELOW Normal [facility] Comment on above: Result Comment: <100 mg/dl OPTIMAL 100 - 129 mg/dl NEAR OR ABOVE OPTIMAL 130 - 159 mg/dl BORDERLINE HIGH 160 - 189 mg/dl HIGH >190 mg/dl VERY HIGH Performed By: #### L IPID, CMP #### [facility] [address] [place] [address] Dr. Ivonne Ojdea Triglyceride [Mass/Vol] 157 mg/dL Critically high <=150 [facility] Comment on above: Performed By: #### L IPID, CMP #### [facility] [address] [place] [address] Dr. Ivonne Ojeda VLDL CALC 31.4 mg/dL Normal [facility] Comment on above: Performed By: #### L IPID, CMP #### [facility] [address] [place] [address] Dr. Ivonne Ojeda PROF 14(COMP METB)on 022 Albumin [Mass/Vol] 3.8 g/dL Normal 3.4-5.[address] [facility] Comment on above: Performed By: #### L IPID, CMP #### [facility] [address] [address] [address] Ivonne Ojeda Albumin/Globulin [Mass ratio] 1.1 {ratio} Normal [facility] Comment on above: Performed By: #### L IPID, CMP #### [facility] [address] [address] [address] Ivonne Ojeda ALP [Catalytic activity/Vol] 76 U/L Normal 46-116 [facility] Comment on above: Performed By: #### L IPID, CMP #### [facility] [address] [address] [address] Ivonne Ojeda ALT [Catalytic activity/Vol] 43 U/L Normal 16-63 [facility] Comment on above: Performed By: #### L IPID, CMP #### [facility] [address] [address] [address] Ivonne Ojeda Anion gap [Moles/Vol] 11.9 mmol/L Normal [facility] Comment on above: Performed By: #### L IPID, CMP #### [facility] [address] [address] [address] Ivonne Ojeda AST [Catalytic activity/Vol] 30 U/L Normal 15-37 [facility] Comment on above: Performed By: #### L IPID, CMP #### [facility] [address] [address] [address] Ivonne Ojeda Bilirubin [Mass/Vol] 0.5 mg/dL Normal 0.2-1.0 [facility] Comment on above: Performed By: #### L IPID, CMP #### [facility] [address] [address] [address] Ivonne Ojeda Calcium [Mass/Vol] 8.9 mg/dL Normal 8.5-10.[address] [facility] Comment on above: Performed By: #### L IPID, CMP #### [facility] [address] [address] [address] Ivonne Ojeda Chloride [Moles/Vol] 102 mmol/L Normal 98-107 [facility] Comment on above: Performed By: #### L IPID, CMP #### [facility] [address] [address] [address] Ivonne Ojeda CO2 [Moles/Vol] 27.9 mmol/L Normal 21.0-32.0 [facility] Comment on above: Performed By: #### L IPID, CMP #### [facility] [address] [address] [address] Ivonne Ojeda Creatinine [Mass/Vol] 0.94 mg/dL Normal 0.70-1.30 [facility] Comment on above: Performed By: #### L IPID, CMP #### [facility] [address] [address] [address] Ivonne Ojeda EGFR-AF HUNGARIAN >60 Normal >=60 [facility] Comment on above: Performed By: #### L IPID, CMP #### [facility] [address] [address] [address] Ivonne Ojeda EGFR-NON AF HUNGARIAN >60 Normal >=60 [facility] Comment on above: Performed By: #### L IPID, CMP #### [facility] [address] [address] [address] Ivonne Ojeda Globulin (S) [Mass/Vol] 3.6 g/dL Normal [facility] Comment on above: Performed By: #### L IPID, CMP #### [facility] [address] [address] [address] Ivonne Ojeda Glucose [Mass/Vol] 103 mg/dL Normal 74-[address] [facility] Comment on above: Performed By: #### L IPID, CMP #### [facility] [address] [address] [address] Ivonne Ojeda Potassium [Moles/Vol] 3.8 mmol/L Normal 3.5-5.1 [facility] Comment on above: Performed By: #### L IPID, CMP #### [facility] [address] [address] [address] Ivonne Ojeda Protein [Mass/Vol] 7.4 g/dL Normal 6.4-8.[address] [facility] Comment on above: Performed By: #### L IPID, CMP #### [facility] [address] [address] [address] Ivonne Ojeda Sodium [Moles/Vol] 138 mmol/L Normal 136-[address] [facility] Comment on above: Performed By: #### L IPID, CMP #### [facility] [address] [address] [address] Ivonne Ojeda Urea nitrogen [Mass/Vol] 10.0 mg/dL Normal 7.0-18.0 [facility] Comment on above: Performed By: #### L IPID, CMP #### [facility] [address] [address] [address] Ivonne Ojeda Urea nitrogen/Creatinine [Mass ratio] 10.6 mg/mg Normal [facility] Comment on above: Performed By: #### L IPID, CMP #### [facility] [address] [address] [address] Ivonne Ojeda HAND RIGHT 3 Son 9 HAND RIGHT 3 S [facility] Department of Radiology [address] [place] [id number] Patient Name: LEFTY AMBROCIO : 1975 [...] latter Electronically signed by:Maine Tyson. Transcribed by: [email or web address], User Resident: Electronically Signed by: MAINE TYSON @ 07/11/2018 04:09 PM Normal [facility] Comment on above: Order Comment: , Jacque [...] Facility:[facility] Payers Date Payer Category Payer Unknown [id number] 2.16.84 [id number] 1975 Unknown [id number] 2.16.84 [id number] 1975 Unknown [id number] 2.16.84 [id number] 1975 Unknown [id number] 2.16.84 [id number] 1975 Unknown [id number] 2.16.84 [id number] 1957 Unknown [id number] Summary Purpose Family History No Family History Records FoundNo Family History Records Found Advance Directives No Advanced Directives Records FoundNo Advanced Directives Records Found Additional Source Comments (unrecognized sect ion and content) No Status Records FoundNo Status Records Found INFORMATION SOURCE (unrecogn ized section and content) DATE CREATED AUTHOR 03/18/2019 [facility] DATE CREATED AUTHOR AUTHOR'S ORGANIZ ATION 05/29/2022 The [facility] FOR RECORDS PERTAINING TO PATIENTS WHO ARE [...] BE BASED ON THE PRIMARY CLINICAL RECORDS. [facility] [employer] [facility]. provides no warranty or guarantee of the accuracy or completeness of information in this document.
[2024-06-26 12:59] VITALS: O2SAT 98
[2024-06-26] MEDS: AMLODIPINE BESYLATE 5 MG TABLET PO ×2 (13:04→13:56)
[2024-06-26 13:31] VITALS: BP 182/92
[2024-06-26] MEDS: HYDROXYZINE PAMOATE 25 MG CAPSULE PO (13:56)
[2024-06-26 13:57] VITALS: BP 168/98; PULSE 92; O2SAT 100
--- NOTE | 2024-06-26 18:05 | ED.GENADUL1 ---
HPI HPI - General Adult General Chief complaint: Recheck/Abnormal Lab/Rx Stated complaint: HIGH BLOOD PRESSURE Time Seen by Provider: 06/26/24 13:00 Source: patient Mode of arrival: walk-in Limitations: no limitations History of Present Illness HPI narrative: The patient comes to the ER requesting refill of his amlodipine he already had contacted his primary care but he was provided with amlodipine tomorrow at 2 PM and he is worried about his blood pressure being elevated Patient have no other complaints at the moment otherwise Related Data Home Medications ?Medication ?Instructions ?Recorded ?Confirmed amlodipine 5 mg tablet 5 mg PO DAILY 06/26/24 06/26/24 hydroxyzine HCl 25 mg tablet 25 mg PO QID 06/26/24 06/26/24 trazodone 50 mg tablet 50 mg PO BEDTIME 06/26/24 06/26/24 Allergies Allergy/AdvReac Type Severity Reaction Status Date / Time naproxen AdvReac Intermediate bleeding Verified 06/26/24 12:53 ulcer oyster Allergy Severe Hives Uncoded 06/26/24 12:53 Opioid HPI Opioid Management Most Recent Opioid Data: No Data to Display Review of Systems ROS Status of ROS 10 or more systems reviewed and unremarkable except as noted in history and below PFSH PFSH Social History Smoking status: Former smoker Little interest or pleasure in doing things: not at all Feeling down, depressed, or hopeless: not at all Exam Narrative Exam Narrative: Nurses notes and vital signs reviewed and patient is not hypoxic. General: Well-appearing and in no apparent distress. Skin: Warm, dry, no pallor noted. No rash. Head: Normocephalic, atraumatic. Neck: Supple, non-tender. Eye: Pupils are equal, round and EOMI. No scleral icterus. Ears, Nose, Mouth, and Throat: TM are clear, no nasal mucosal hypertrophy. Oral mucosa is moist, no posterior oropharynx erythema, uvula is mid-line Cardiovascular: Regular Rate and Rhythm without murmur, gallop or rub. Respiratory: No accessory muscle use or respiratory distress. Lungs are clear to auscultation, no wheezing, rales or rhonchi Chest Wall: no tenderness Back: No midline thoracic or lumbar vertebral tenderness. No CVA tenderness Musculoskeletal: normal ROM, no calf or popliteal tenderness, no lower extremity edema/swelling GI: Abdomen is soft, non-distended. Normal bowel sounds. No masses appreciated. No tenderness to palpation. No rebound, guarding, or rigidity noted. Neurological: A&O x4. No cranial nerve dysfunction observed. No truncal ataxia. Moves all extremities. Sensation intact. Psychiatric: Cooperative and interactive. Normal mood and affect. Constitutional Vital Signs, click to edit/add: Last Vital Signs Temp 98.5 F 06/26/24 12:46 Pulse 92 H 06/26/24 13:57 Resp 18 06/26/24 13:57 BP 168/98 H 06/26/24 13:57 Pulse Ox 100 06/26/24 13:57 O2 Del Method Room Air 06/26/24 12:59 Course Vital Signs Vital signs: Vital Signs Temperature 98.5 F 06/26/24 12:46 Pulse Rate 99 H 06/26/24 12:46 Respiratory Rate 20 06/26/24 12:46 Blood Pressure 190/100 H 06/26/24 12:46 Pulse Oximetry 98 06/26/24 12:46 Oxygen Delivery Method Room Air 06/26/24 12:46 Temperature 98.5 F 06/26/24 12:46 Pulse Rate 92 H 06/26/24 13:57 Respiratory Rate 18 06/26/24 13:57 Blood Pressure 168/98 H 06/26/24 13:57 Pulse Oximetry 100 06/26/24 13:57 Oxygen Delivery Method Room Air 06/26/24 12:59 Medical Decision Making [facility] Narrative Medical decision making narrative: The patient was provided with amlodipine here and another pill to take tomorrow Also was provided with hydroxyzine that he usually take for anxiety and he will take it when he gets home The patient is to follow up with primary care physician in next 2-3 days or to return to the emergency department should any of the signs or symptoms worsen or new symptoms develop. The patient agrees with the following Diagnosis and Treatment plan and the patient will be discharged home. Discharge Plan Discharge Chief Complaint: Recheck/Abnormal Lab/Rx Clinical Impression: Hypertension, Anxiety Patient Disposition: Home, Self-Care Time of Disposition Decision: 13:46 Condition: Good Prescriptions / Home Meds: No Action amlodipine 5 mg tablet 5 mg PO DAILY hydroxyzine HCl 25 mg tablet 25 mg PO QID trazodone 50 mg tablet 50 mg PO BEDTIME Print Language: Maldivian Instructions: Hypertension (ED) Referrals: AGUILA HERNANDEZ [Primary Care Provider] - 1 week Discharge Date/Time: 06/26/24 14:01
== END 2024-06-26 14:01 | disposition home or self-care (01) ==
PROVIDERS: Emergency Provider Emergency Medicine; PCP Nurse Practitioner Family
DX: I10 Essential (primary) hypertension (principal); F41.9 Anxiety disorder, unspecified; Z87.891 Personal history of nicotine dependence
CPT/HCPCS: 99284; Q0177

== ENCOUNTER 2024-11-01 15:24 | Emergency (ER) | payer SELFPAY ==
--- OUTSIDE RECORDS SUMMARY | 2023-12-22 04:37 | XMS_ITS ---
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 Name Role Phone Shaneka Lindsay Primary Care Provider REASON FOR VISIT hydroxyzine Medications Medication SIG (Take, Route, Fr equency, Duration) Notes Start Date End Date Status hydrOXYzine HCl 25 MG 1 tablet as needed Orally QID as needed for 30 days Active Encounters Encounter Location Date Provider Diagnosis [address] [address] 12/22/2023 Shaneka Lindsay Anxiety and depression F41.9 Assessments Encounter Date Diagnosis (ICD Code) Assessment Notes Treatment Notes Treatment Clinical Notes Section Notes 12/22/2023 Anxiety and depression (ICD-10 - F41.9) Plan Of Treatment Medication Medication Name Sig Start Date Stop Date Notes hydrOXYzine HCl 25 MG 1 tablet as needed Orally QID as needed for 30 days Progress Notes * Freeman LEZAMADOB:1974 (48 yo M)Acc No.[id number]:12/22/2023 Patient: Adi Freeman JAMES :1975 A ge:48 Y S ex:Male Address:[address] [place] [address], [facility], [place] [address] * Refills Refill hydrOXYzine HCl Tablet, 25 MG, Orally, 120, 1 tablet as needed, QID as needed, 30 days, Refills=2 Subjective: * Chief Complaints: * H ydroxyzine * Medical History: * Surgical History: * Hospitalization/Major Diagno stic Procedure: * Medications: Objective: * Vitals: * Physical Examination: Assessment: * Assessment: 1. A nxiety and depression - F41.9 Plan: * Treatment: * Procedure Codes: * true * Date: Generated for Rigoberto garcia/Renetta/Dalia on: 0 11/01/2024 03:33 PM EDT
--- OUTSIDE RECORDS SUMMARY | 2023-12-23 04:30 | XMS_ITS ---
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 Name Role Phone Shaenka Lindsay Primary Care Provider [phone] Allergies Allergen (clinical drug ingredient) Drug/Non Drug Allergy documented on EMR Reaction Allergy Type Onset Date Status naproxen Naproxen stomach upset Drug Allergy Act jeniffer REASON FOR VISIT left under arm lymph nodes swollen and painful lasting 2 months Medications Medication SIG (Take, Route, Frequency, Duration) Notes Start Date End Date Status Methocarbamol 500 MG Oral for 7 Days Active hydrOXYzine HCl 25 MG 1 tablet as needed Orally QID as needed for 30 days Active amLODIPine Besylate 5 MG 1 tablet Orally Once a day for 30 days Active traZODone HCl 50 MG 1 tablet at bedtime as needed Orally Once a day for 30 days 11/30/2023 Active Magnesium 100 MG 1 capsule with food Orally Four times a day prn Active Social History Tobacco Use: Social History Observation Description Date Details (start date - stop date) Former Smoker 06/07/1987 - 05/07/2022 Tobacco Use/Smoking Question Answer Notes Patient is a former smoker When did you start smoking? 06/07/1987 When did you stop smoking? 05/07/2022 How long has it been since you last smoked? 1-5 years AUDIT-C (Standard) Question Answer Notes Did you have a drink contain ing alcohol in the past year? Yes How often did you have six o r more drinks on one occasion in the past year? 2 to 3 times per week (3 points) How many drinks did you have on a typical day when you were drinking in the past year? 7 to 9 drinks (3 points) How often did you have a dri nk containing alcohol in the past year? Daily or almost daily (4 points) Points 10 Interpretation Positive Vital Signs Weight 160 lbs 12/23/2023 Height 67.5 in 12/23/2023 Blood pressure systolic 132 mm Hg 12/23/19 24 Blood pressure diastolic 80 mm Hg 024 BMI 24.69 kg/m2 12/23/2023 Encounters Encounter Location Date Provider Diagnosis [facility] [address] [place] [address] 12/23/2023 Shaneka Lindsay Smoking history Z87.891 Assessments Encounter Date Diagnosis (ICD Code) Assessment Notes Treatment Notes Treatment Clinical Notes Section Notes 12/23/2023 Smoking history (ICD-10 - Z87.891) stopped smoking chest xray 2 years ago showed COPD concerned, would like repeated Plan Of Treatment Treatment Notes Assessment Notes Smoking history stopped smoking chest xray 2 years ago showed COPD concerned, would like repeated Pending Test Test Name Order Date XR Chest PA and Lateral (Routine CXR) * 12/23/2023 Next Appt Details Follow Up: prn, Reason: Progress Notes * Freeman LEZAMADOB:1974 (48 yo M)Acc No.[id number]:12/23/2023 Progress Note Patient: Freeman CONDE Provider: Johnna Lindsay ([facility]), HYDROELECTRIC PRODUCTION MANAGER :1975 A ge:48 Y S ex:Male Date:12/23/2023 Address:[address] [place] [address], [address] Pcp:SHANEKA LINDSAY Check In:08:25 AM ESTCheck O ut:08:50 AM EST Subjective: * Chief Complaints: * 1 . Left under arm lymph nodes swollen and painful lasting 2 months. * HPI: G eneral: started 2 months ago burning stinging sensation under left armpit, now under right armpit some times no lumps right now worried about lungs feeling better over all. * ROS: G eneral/Constitutional: Fever d enies. H eadache d enies. W eight loss?denies. O phthalmologic: Discharge d enies. E ye Pain d enies. I tching and redness d enies. E NT: Nasal discharge d enies. N ron congestion d enies.?Sore throat d enies. C ardiovascular: Chest tightness/ heavy pressure d enies. R apid heart rate d enies. S welling of extremities d enies. C hest pain d enies. ? R espiratory: Productive cough d enies. C hest pain d enies. C ough d enies. S hortness of breath d enies. W heezing d enies. ? G astrointestinal: Abdominal pain d enies. C onstipation d enies. D ecreased appetite d enies. D iarrhea d enies. N ausea d enies. V omiting?denies. G enitourinary: Urinary incontinence d enies. P ainful urination d enies. M usculoskeletal: Back pain d enies. N kenji pain d enies. M uscle aches d enies. S kin: Rash d enies. S kin lesion(s) d enies. ? p ain under bilateral armpits comes and goes no swelling at this time. * Active Problem List J44.9 COPD (chronic obstru ctive pulmonary disease) Modified On:06/22/2023 Status:confirmed K21.9 GERD (gastroesophage al reflux disease) Modified On:06/22/2023 Status:confirmed M19.90 Arthritis Modified On:06/22/2023U Status:confirmed F41.9 Anxiety and depressi on Modified On:06/22/2023U Status:confirmed G62.9 Neuropathy Modified On:06/22/2023U Status:confirmed M54.30 Sciatica Modified On:06/22/2023U Status:confirmed E78.5 Hyperlipidemia Modified On:06/22/2023 Status:confirmed I10 Hypertension Modified On:06/22/2023 Status:confirmed F19.10 Substance abuse Modified On:06/22/2023U Status:confirmed F10.10 Alcohol abuse Modified On:06/22/2023U Status:confirmed F17.200 Nicotine addiction Modified On:06/22/2023W/U Status:confirmed G47.00 Insomnia Modified On:11/30/2023W/U Status:confirmed * Medical History: S manda stenosis, Hyperlipidemia, Hypertension, Substance abuse, Nicotine addiction, GERD (gastroesophageal reflux disease), COPD (chronic obstructive pulmonary disease), Arthritis, Anxiety and depression. * Surgical History: r ight shoulder surgery 2021, lumbar abalation . * Hospitalization/Major Diagno stic Procedure: o verdose tylenol 2004, suicide attempt . * Family History: F ather: alive. M other: , diagnosed with Other malignant neoplasm of unspecified site. B rother(s): alive. S ister(s): alive. D aughter(s): alive. 1 brother(s) , 1 sister(s) - healthy. 1 daughter(s) - healthy. . * Social History: T obacco Use: T obacco Use/Smoking P atient is a f ormer smoker W hen did you start smoking? 0 06/07/1987 W hen did you stop smoking? 1 07/08/2021 H ow long has it been since you last smoked??1-5 years D rug/Alcohol: A NAZIA-C (Standard) D id you have a drink containing alcohol in the past year? Y es H ow often did you have six or more drinks on one occasion in the past year? 2 to 3 times per week (3 points) H ow many drinks did you have on a typical day when you were drinking in the past year? 7 to 9 drinks (3 points) H ow often did you have a drink containing alcohol in the past year? D aily or almost daily (4 points) P oints 1 0 I nterpretation P ositive * Medications: T aking amLODIPine Besylate 5 MG Tablet 1 tablet Orally Once a day , Taking hydrOXYzine HCl 25 MG Tablet 1 tablet as needed Orally QID as needed , Taking Magnesium 100 MG Capsule 1 capsule with food Orally Four times a day prn , Taking Methocarbamol 500 MG Tablet Oral , Taking traZODone HCl 50 MG Tablet 1 tablet at bedtime as needed Orally Once a day , Medication List reviewed and reconciled with the patient * Allergies: N aproxen: stomach upset - Side Effects - Criticality High. Objective: * Vitals: W t:160lbs, Ht: 67.5 in, BP:132/80mm Hg, BMI:24.69Index, Ht-cm: 171.45 cm, Wt-k.57 kg. * Examination: G eneral Examinations: GENERAL APPEARANCE: a lert and oriented, i n no acute distress. EYES: conjunctiva normal, sclera non-icteric. NOSE: n ormal external appearance. THROAT: n ormal. LYMPH NODES: n o axillary lymph nodes palpated bilaterally.? LUNGS: c lear to auscultation bilaterally. CARDIO: r egular rate and rhythm, S1, S2 normal. ABDOMEN: s oft, nontender. MUSCULOSKELETAL G ait and station normal. SKIN: w arm and dry. Assessment: * Assessment: 1. Gumaro krissy history - Z87.891 (Primary) Plan: * Treatment: * Follow Up: p rn * * Sign off status: Completed Visit Status: C HK (Check Out) true * Provider: Johnna Lindsay ([facility]), HYDROELECTRIC PRODUCTION MANAGER Date: 12/23/2023 Generated for Rigoberto garcia/Renetta/eTransmitting on: 0 11/01/2024 03:33 PM EDT History and Physical Notes * HPI (History of Present Illness) Category Sub-Category Detail Notes Category Not es General started 2 months ago burning stinging sensation under left armpit, now under right armpit some times no lumps right now worried about lungs feeling better over all Examination Category Sub-Category Detail Notes Category Not es General Examinations GENERAL APPEARANCE: alert a nd oriented, in no acute distress EYES: conjunctiva normal, sclera non-icteric NOSE: normal external appe arance THROAT: normal CARDIO: regular rate and rhy thm, S1, S2 normal LUNGS: clear to auscultatio n bilaterally ABDOMEN: soft, nontender SKIN: warm and dry MUSCULOSKELETAL: Gait and station nor mal LYMPH NODES: no axillary lymph no noble palpated bilaterally
--- OUTSIDE RECORDS SUMMARY | 2023-12-23 07:25 | XMS_ITS ---
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
--- OUTSIDE RECORDS SUMMARY | 2024-02-29 09:16 | XMS_ITS | Continuity of Care Document ---
Author Organization [facility] Address [address] [place] [address] Phone Care Team Providers Care Cataloging Assistant Name Role Phone Peggy Nugent Unavailable Unavailable Allergies, Adverse Reactions, Alerts Substance Reaction Status Criticality acetaminophen Active No Information Medications Medication Instructions Dosage Effective Dates (start - stop) Status Comments magnesium 200 mg tablet - Active lisinopril 10 mg tablet take 1 tablet by oral route every day 10 MG - Active Flonase Allergy Relief 50 mcg/actuation nasal spray,suspension spray 1 - 2 spray by intranasal route every day in each nostril as needed 50-100 MCG - Active Procedures Procedure Date Acute Detox Fiber Worker Acute 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 Acute 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 Acute Detox Fiber 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 Acute Detox Fiber Worker Acute Detox Fiber Worker ROUTINE VENIPUNCTURE DRUG TEST PRSMV DIR OPT OBS ASSAY OF BREATH ETHANOL Resin 4+ W/incis Angle Anterior 023 Limited Oral Eval Oral Hygiene Instruction Resin Composite 3s; Posterior Periodontal Scalin And Root Planning 1 T o 3 Teeth Periodontal Scalin And Root Planning 1 T o 3 Teeth Nutrit Couns For Control Of Scurry Dis Sep Oral Hygiene Instruction Resin Three Surfaces Anterior Treatment Not Completed Intraoral-complete Series (bw) 23 High Risk Oral Hygiene Instruction Comp Oral Eval New/estab Patient 2022 Limited Oral Eval Extraction Surgical/erupt Tooth 022 Advance Directives Directive Yes / No Effective Date File Name No Information Encounters Encounter Description Practice Location Reason(s) For Visit Diagnoses Date Provider Providers Copied on Encounter [facility], [address], [place], [id number], [place] tel:[phone] [facility] Detox No Information Klidas Peggy. [address], [place], [id number], [place]. tel:[phone] [facility], [address], [place], [id number], [place] tel:[phone] [facility] Detox No Information Klidas Peggy. [address], [place], [id number], [place]. tel:[phone] [facility], [address], [place], [id number], [place] tel:[phone] [facility] Detox No Information Klidas Peggy. [address], [place], [id number], [place]. tel:[phone] [facility], [address], [place], [id number], [place] tel:[phone] [facility] Detox No Information Klidas Peggy. [address], [place], [id number], [place]. tel:[phone] [facility], [address], [place], [id number], [place] tel:[phone] [facility] Detox No Information Klidas Peggy. [address], [place], [id number], [place]. tel:[phone] [facility], [address], [place], [id number], [place] tel:[phone] [facility] Detox No Information Mary Lomas. [address] [place], [address], [place]. tel:[phone] [facility], [address], [place], [id number], [place] tel:[phone] [facility] Detox No Information Jovanna Woods. [address], [place], [id number], [place]. tel:[phone] [facility], [address], [place], [address], [place] tel:[phone] Dental Clinic fill (chief complaint) Encounter for screening for dental disorders Kanani DMD Kerwin. [address], [place], [id number], [place]. tel:[phone] [facility], [address], [place], [id number], [place] tel:[phone] Dental Clinic fill (chief complaint)F [place] (chief complaint) Encounter for screening for dental disorders Kanani DMD Kerwin. [address], [place], [id number], [place]. tel:[phone] [facility], [address], [place], [address], [place] tel:[phone] Dental Clinic SRP (chief complaint) Encounter for screening for dental disorders Marisa Dunlap. [address] [place], [address], [place]. tel:[phone] [facility], [address], [place], [id number], [place] tel:[phone] Dental Clinic Encounter for screening for dental disorders Kanani DMD Kerwin. [address], [place], [id number], [place]. tel:[phone] [facility], [address], [place], [id number], [place] tel:[phone] Dental Clinic celine (chief complaint) No Information Jose Eduardo Suresh. [address], [place], [id number], [place]. tel:[phone] [facility], [address] [place] [address], [id number], [place] tel:[phone] Dental Clinic Dental new (chief complaint) Encounter for screening for dental disorders Jose Eduardo Suresh. [address], [place], [id number], [place]. tel:[phone] [facility], [address] [place] [address], [id number], [place] tel:[phone] Dental Clinic de (chief complaint) Encounter for screening for dental disorders Jose Eduardo Suresh. [address], [place], [id number], [place]. tel:[phone] Family History Family Member Type Diagnosis Age At Onset No Information Payers Payer name Insurance type Covered republican ID Viridiana alvarado(s) [facility] Funded [id number] Social History Type Description Quantity Date Captured Comments Sex Male Smoking Status No Information Sexual Orientation Straight or heterosexual Gender Identity Male Chief Complaint And Reason For Visit No Information Reason For Referral Reason For Referral No Information Plan Of Treatment Date Type Action Status Goal Influenza vaccine. Due on due Goal Hepatitis C screening. Due o n due Goal PRAPARE ASSESSMENT. Due on due Goal Lipid panel. Due on due Goal Tdap Vaccine. Due on 2023 due Goal Unhealthy drug use screening . Due on due Goal Depression screening. Due on due Goal Tdap. Due on due Goal PRAPARE ASSESSMENT. Due on due Goal Depression screening. Due on due Goal Tdap. Due on due Goal Influenza vaccine. Due on due Goal Lipid panel. Due on due Goal Tdap Vaccine. Due on 2022 due Goal Depression screening. Due on due Goal Tdap. Due on due Goal Lipid panel. Due on due Goal PRAPARE ASSESSMENT. Due on due Goal Influenza vaccine. Due on due Goal Hep A. Due on du e Goal Tdap Vaccine. Due on 2022 due Goal Depression screening. Due on due Goal Tdap. Due on due Goal Lipid panel. Due on due Goal PRAPARE ASSESSMENT. Due on A due Goal Tdap Vaccine. Due on 2022 due Goal Influenza vaccine. Due on due Goal Hep A. Due on du e Goal Depression screening. Due on due Goal Tdap Vaccine. Due on 2022 due Goal Tdap. Due on due Goal Influenza vaccine. Due on due Goal Lipid panel. Due on due Goal PRAPARE ASSESSMENT. Due on A due Goal Tdap Vaccine. Due on 2022 due Goal Depression screening. Due on due Goal Influenza vaccine. Due on Ap due Goal Lipid panel. Due on 023 due Goal Tdap. Due on due Goal PRAPARE ASSESSMENT. Due on A due Goal Lipid panel. Due on 023 due Goal PRAPARE ASSESSMENT. Due on F due Goal Tdap. Due on due Goal Depression screening. Due on due Goal Influenza vaccine. Due on due Goal Hep A. Due on du e Goal Hep A. Due on du e Goal Tdap Vaccine. Due on 2022 due Goal Influenza vaccine. Due on due Goal Depression screening. Due on due Goal Tdap. Due on due Goal PRAPARE ASSESSMENT. Due on due Goal Lipid panel. Due on 022 due History Of Present Illness Encounter Date Complaint History Of Prese nt Illness fill fill fill fill CELINE CELINE SRP SRP celine celine Dental new dental new, esta b dental care de de Functional Status Date Functional Assessmen t No Information Instructions Date Instruction Additional Infor mation No Information Assessments Type Assessment Date No Information Patient Care Teams Name Effective Dates (start - stop) Status Members No Information
--- OUTSIDE RECORDS SUMMARY | 2024-11-01 15:33 | XMS_ITS | Clinical Summary ---
Author Organization [facility] Address [address] [place] [address] Care Team Providers Care Robot Technician Name Role Phone David Carlos Gallardo Primary Care Provider + [phone] Allergies No known active allergies Medications DULoxetine (CYMBALTA) 30 mg capsuleIndicatio ns:AC (acromioclavicul ar) arthritis Take 30 mg by mouth once daily. Active celecoxib (CELEBREX) 200 mg capsuleIndicatio ns:AC (acromioclavicul ar) arthritis Take 200 mg by mouth once daily. Active traZODone (DESYREL) 50 mg tabletIndication s:AC (acromioclavicul ar) arthritis Take 50 mg by mouth daily at bedtime. Active cyclobenzaprine (FLEXERIL) 10 mg tabletIndication s:AC (acromioclavicul ar) arthritis Take 10 mg by mouth twice daily as needed. Active Omeprazole 40 mg capsuleIndicatio ns:AC (acromioclavicul ar) arthritis Take 40 mg by mouth once daily. Active CHLORPHENIRAMINE MALEATE (ALLERGY, CHLORPHENIRAMINE , ORAL)Indications :AC (acromioclavicul ar) arthritis Take by mouth once daily. Active Active Problems Problem Noted Date Diagnosed Date AC (acromioclavicular) arthritis 10/22/2014 Social History Tobacco Use Types Packs/Day Years Used Date Smoking Tobacco: Every Day Cigarettes 2 21 Alcohol Use Standard Drinks/Week Comments No 0 (1 standard drink = 0.6 oz pur e alcohol) Sex and Gender Information Value Date Recorded Sex Assigned at Not on file Legal Sex Male 11:32 AM EST Gender Identity Not on file Sexual Orientation Not on file Last Filed Vital Signs Vital Sign Reading Time Taken Comments Blood Pressure 126/95 06/19/2014 3:22 PM EST Pulse 94 06/19/2014 3:22 PM EST Temperature - - Respiratory Rate - - Oxygen Saturation - - Inhaled Oxygen Concentration - - Weight 66.7 kg (147 lb) 10/22/2014 12:31 PM EDT Height 172.7 cm (5' 8 ) 10/22/2014 12:31 PM EDT Body Mass Index 22.35 10/22/2014 12:31 PM EDT Plan of Treatment Health Maintenance Due Date Last Done Comments Anxiety Screening 1995 Depression Screening 1995 HIV Screening 1995 Hepatitis C Screening 1995 DTaP,Tdap,Td Vaccine (1 - Tdap) 02/21/1996 Hepatitis B Vaccine (1 of 3 - 19+ 3-dose series) 02/20 Lipid Screening 02/21/2012 CT Colonography 2022 Cologuard (FIT-DNA) 2022 Colonoscopy 2022 Colorectal Cancer Screening 2022 Diabetes Screening 2022 Fecal Occult Blood 2022 Sigmoidoscopy 2022 Covid-19 Vaccine (2023- season) 2024 Influenza Vaccine (Season Ended) 2025 Insurance [facility] MEDICAID Care Teams Robot Technician Relationship Specialty Start Date End Date Carlos Hernandez DO PCP - General Family Medicine 04/24/14
--- OUTSIDE RECORDS SUMMARY | 2024-11-01 15:34 | XMS_ITS | Patient Health Record ---
Author Organization [facility] [place] Address [address] [place] [address] Care Team Providers Care Plate Embosser Name Role Phone Shaneka Lindsay Primary Care Provider SHANEKA LINDSAY Unavailable [phone] Allergies Allergen (clinical drug ingredient) Drug/Non Drug Allergy documented on EMR Reaction Allergy Type Onset Date Status naproxen Naproxen stomach upset Drug Allergy Act jeniffer Results Component Value Reference Range Notes XR chest 2V Reviewed date:12/23/2023 11:25:48 AM Interpretation: Performing Lab: Notes/Report: Source Facility: [place] [address] XRay Report Signed Patient: LEFTY LEZAMA MR#: [id number] : 1975 Acct:[id number] Age/Sex: 48 / M ADM Date: 12/23/23 Loc: RAD Attending Dr: SHANEKA LINDSAY Ordering Physician: SHANEKA LINDSAY Date of Service: 12/23/23 Procedure(s): XR chest 2V Accession Number(s): [id number] cc: SHANEKA LINDSAY [place] [id number] Patient Name: LEFTY LEZAMA MRN: [id number] date: 1975 Sex: M Assigned Patient Location: RAD Current Patient Location: RAD Accession/Order Number: [id number] Exam Date: 12/23/2023 09:10 Report Date: 12/23/2023 09:28 At the request of: SHANEKA LINDSAY Procedure: XR chest 2V EXAMINATION: XR chest 2V HISTORY: Smoking History Z87.891 , chest congestion COMPARISON: No relevant comparison available. FINDINGS: LUNGS: No significant pulmonary parenchymal abnormalities. VASCULATURE: No increased pulmonary vasculature. PLEURA: No pneumothorax, effusion, or pleural thickening. CARDIAC: No cardiomegaly or cardiac silhouette abnormality. MEDIASTINUM: No visible mass or adenopathy. BONES: No fracture or visible bone lesion. OTHER: Negative. XR/XR chest 2V IMPRESSION: 1. No acute cardiopulmonary process or suspicious findings. Electronically authenticated by: ROSCOE MIRANDA Date: 12/23/2023 09:28 Dictated By: Roscoe Miranda M.D. Signed By: 12/23/23930 DD/ 7 TD/TT: Donor Relations Coordinator: [place] [address] XRay Report Signed Patient: LEFTY LEZAMA MR#: [id number] : 1975 Acct:[id number] Age/Sex: 48 / M ADM Date: 12/23/23 Loc: RAD Attending Dr: SHANEKA LINDSAY Ordering Physician: SHANEKA LINDSAY Date of Service: 12/23/23 Procedure(s): XR chest 2V Accession Number(s): [id number] cc: SHANEKA LINDSAY [place] [id number] Patient Name: ELFTY LZEAMA MRN: [id number] date: 1975 Sex: M Assigned Patient Location: RAD Current Patient Location: RAD Accession/Order Numb er: [id number] Exam Date: 12/23/2023 09:10 Report Date: 12/23/2023 09:28 At the request of: SHANEKA LINDSAY Procedure: XR chest 2V EXAMINATION: XR chest 2V HISTORY: Smoking His tory Z87.891 , chest congestion COMPARISON: No relev ant comparison available. FINDINGS: LUNGS: No significan t pulmonary parenchymal abnormalities. VASCULATURE: No incr eased pulmonary vasculature. PLEURA: No pneumotho rax, effusion, or pleural thickening. CARDIAC: No cardiome lisha or cardiac silhouette abnormality. MEDIASTINUM: No visi ble mass or adenopathy. BONES: No fracture o r visible bone lesion. OTHER: Negative. X R/XR chest 2V IMPRESSION: 1. No acute cardiopu lmonary process or suspicious findings. Electronically authe nticated by: ROSCOE MIRANDA Date: 12/23/2023 09:28 Dictated By: Roscoe Miranda M.D. Signed By: 12/23/23930 DD/ 7 TD/TT: Donor Relations Coordinator: Reason For Referral No Information Medications Medication SIG (Take, Route, Frequency, Duration) [...] been since you last smoked? 1-5 years Alcohol Screen (Audit-C) Question Answer Notes Did you have a drink contain ing alcohol in the past year? Yes How often did you have 6 or more drinks on one occasion in the past year? Monthly or less (1 point) How many drinks did you have on a typical day when you were drinking in the past year? 5 or 6 drinks (2 points) How often did you have a dri nk containing alcohol in the past year? Daily or almost daily (4 points) Points 7 Interpretation Positive AUDIT-C (Standard) Question Answer Notes Did you [...] daily (4 points) Points 10 Interpretation Positive Problems Problem Type SNOMED Code ICD Code Onset Dates Problem Status W/U Status Risk Notes Problem Hyperlipidemia (19006352) Hyperlipidemia (E78.5) Active confirmed Problem Hypertension (64958622) Hypertension (I10) Active confirmed Problem COPD - Chronic obstructive pulmonary disease (28247923) COPD (chronic obstructive pulmonary disease) (J44.9) Active confirmed Problem Gastroesophageal reflux disease (831745842) GERD (gastroesophageal reflux disease) (K21.9) Active confirmed Problem Arthritis (8919310) Arthritis (M19.90) Active confirmed Problem Insomnia (551286914) Insomnia (G47.00) Active confirmed Problem Alcohol abuse (70109890) Alcohol abuse (F10.10) Active confirmed Problem Neuropathy (432858701) Neuropathy (G62.9) Active confirmed Problem Sciatica (67768938) Sciatica (M54.30) Active co nfirmed Problem Tobacco user (323714974) Nicotine addiction (F17.200) Active confirmed Problem Substance abuse (5161444397) Substance abuse (F19.10) Active confirmed Problem Mixed anxiety and depressive disorder (195953835) Anxiety and depression (F41.9) Active confirmed Vital Signs Blood pressure diastolic 80 mm Hg 12/23/2023 Height 67.5 in 12/23/2023 Blood pressure systolic 132 mm Hg 12/23/2023 Weight 160 lbs 12/23/2023 BMI 24.69 kg/m2 12/23/2023 Encounters Encounter Location Date Provider Diagnosis [facility] [address] [place] [address] 12/22/2023 Shaneka Lindsay Anxiety and depressi on F41.9 [facility] [address] [place] [address] 12/23/2023 Shaneka Lindsay [facility] [address] [place] [address] 11/30/2023 SHANEKA LINDSAY Jaw pain R68.84 ; Alcohol abuse F10.10 ; Anxiety and depression F41.9 ; Insomnia G47.00 and Hypertension I10 [facility] [address] [place] [address] 12/23/2023 Shaneka Lindsay Smoking history Z87.891 Assessments Encounter Date Diagnosis (ICD Code) Assessment Notes Treatment Notes Treatment Clinical Notes Section Notes 11/30/2023 Jaw pain (ICD-10 - R68.84) 11/30/2023 Alcohol abuse (ICD-10 - F10.10) discussed cessation advised detox treatment, referral sheet given with options to ER if needed 12/23/2023 Smoking history (ICD-10 - Z87.891) stopped smoking chest xray 2 years ago showed COPD concerned, would like repeated 12/22/2023 Anxiety and depression (ICD-10 - F41.9) 11/30/2023 Anxiety and depression (ICD-10 - F41.9) 11/30/2023 Insomnia (ICD-10 - G47.00) 11/30/2023 Hypertension (ICD-10 - I10) Plan Of Treatment Pending Test Test Name Order Date XR Chest PA and Lateral (Routine CXR) * 12/23/2023 Insurance Providers Payer Name Payer Address Payer Phone Subscriber Number Group Number Insured Name Patient Relationship to Insured Coverage Start Date Coverage End Date [facility] [address] [place] [phone] [id number] [id number] Lefty Quintero Self - patient is the insured Medical (General) History Medical History History ICD Code Spinal stenosis M48.00 Hyperlipidemia E78.5 Hypertension I10 Substance abuse F19.10 Nicotine addiction F17.200 GERD (gastroesophageal reflux disease) K 21.9 COPD (chronic obstructive pulmonary dise ase) J44.9 Arthritis M19.90 Anxiety and depression F41.9 Surgical History Surgery Date(Month/Year) right shoulder surgery 2021 lumbar abalation Hospitalization History Reason Date(Month/Year) suicide attempt overdose tylenol 2004
[2024-11-01 15:35] VITALS: BP 147/114; PULSE 96; TEMP 36.9; O2SAT 98; BMI 25.8
--- NOTE | 2024-11-01 15:58 | ED.ABDPAIN1 ---
HPI - Abdominal Pain General Chief Complaint: Abdominal Pain Stated Complaint: NAUSEA Time Seen by Provider: 11/01/24 15:40 Source: patient Mode of arrival: walk-in Limitations: no limitations History of Present Illness HPI narrative: 49 year old male presents to the ED for upper abd pain, N/V/D. Onset was 3 weeks ago. Denies fever, chills, urinary symptoms. He is a daily alcohol drinker. Reports an episode of bright red blood in his stools 2 days ago. Related Data Home Medications ?Medication ?Instructions ?Recorded ?Confirmed amlodipine 5 mg tablet 5 mg PO DAILY 06/26/24 11/01/24 hydroxyzine HCl 25 mg tablet 25 mg PO QID 06/26/24 11/01/24 Previous Rx's ?Medication ?Instructions ?Recorded omeprazole 20 mg capsule,delayed 20 mg PO DAILY #14 caps 11/01/24 release ondansetron 4 mg disintegrating 4 mg PO Q8H PRN nausea and 11/01/24 tablet vomiting #12 tabs Allergies Allergy/AdvReac Type Severity Reaction Status Date / Time naproxen AdvReac Intermediate bleeding Verified 11/01/24 15:42 ulcer oyster Allergy Severe Hives Uncoded 11/01/24 15:42 Review of Systems ROS Constitutional Denies: fever or chills Cardiovascular Denies: chest pain Respiratory Denies: shortness of breath Gastrointestinal Reports: abdominal pain, nausea, vomiting and diarrhea Genitourinary Denies: painful urination, urinary frequency or blood in urine Musculoskeletal Denies: back pain Neurological Denies: headache or dizziness PFSH PFSH Social History Smoking status: Former smoker Little interest or pleasure in doing things: not at all Feeling down, depressed, or hopeless: not at all Exam Constitutional Vital Signs, click to edit/add: Last Vital Signs Temp 98.4 F 11/01/24 15:35 Pulse 94 H 11/01/24 17:26 Resp 18 11/01/24 15:35 BP 164/112 H 11/01/24 17:26 Pulse Ox 98 11/01/24 17:26 O2 Del Method Room Air 11/01/24 17:26 Common normals: no apparent distress and oriented x3 General appearance: cooperative HENMT Common normals: moist oral mucous membranes Eye Common normals: conjunctivae normal and no scleral icterus Neck & C-Spine Common normals: supple Respiratory Common normals: normal respiratory effort Effort & inspection: able to speak in complete sentences and symmetric chest movement Cardio Common normals: regular rate and regular rhythm GI Common normals: Normal to inspection, nondistended, normoactive bowel sounds present and soft to palpation Palpation: tender Details: epigastric and LLQ Neuro Common normals: oriented x3, moves all extremities and no focal motor deficits Sensorium/orientation: awake and alert Speech: speech normal Course Vital Signs Vital signs: Vital Signs Temperature 98.4 F 11/01/24 15:35 Pulse Rate 96 H 11/01/24 15:35 Respiratory Rate 18 11/01/24 15:35 Blood Pressure 147/114 H 11/01/24 15:35 Pulse Oximetry 98 11/01/24 15:35 Oxygen Delivery Method Room Air 11/01/24 15:35 Temperature 98.4 F 11/01/24 15:35 Pulse Rate 94 H 11/01/24 17:26 Respiratory Rate 18 11/01/24 15:35 Blood Pressure 164/112 H 11/01/24 17:26 Pulse Oximetry 98 11/01/24 17:26 Oxygen Delivery Method Room Air 11/01/24 17:26 MDM - Abdominal Pain MDM Narrative Medical decision making narrative: CT scan of the abdomen/pelvis was negative for acute findings. ALT and AST were 90. The patient was given IV fluids, Zofran, and Pepcid here. Findings were discussed. Prescriptions were provided for Zofran and omeprazole. He was encouraged to follow up with his pcp and GI for a recheck, further evaluation and treatment. Return to the ED if condition worsens. Differential Diagnosis Differential diagnosis: Likely abdominal pain, diverticulitis, gastroenteritis, pancreatitis and small bowel obstruction Medical Records Attestation: I reviewed the patient's medical records. Lab Data Attestation: I reviewed the patient's lab results. Labs: Lab Results 11/01/24 Range/Units 15:45 WBC 5.5 (4.0-11.0) 10^3/uL RBC 4.79 (4.70-6.10) 10^6/uL Hgb 16.6 (14.0-18.0) g/dL Hct 44.8 (42.0-54.0) % MCV 93.5 (80.0-94.0) fL MCH 34.7 H (25.9-34.0) pg MCHC 37.1 H (29.9-35.2) g/dL RDW 11.7 (11.0-15.0) % Plt Count 255 (150-450) 10^3/uL MPV 9.6 (9.5-13.5) fL Neut % (Auto) 51.5 (43.0-75.0) % Lymph % (Auto) 38.6 (20.5-60.0) % Josephine % (Auto) 7.1 (1.7-12.0) % Eos % (Auto) 1.1 (0.9-7.0) % Baso % (Auto) 1.3 (0.2-2.0) % Neut # (Auto) 2.8 (1.4-6.5) 10^3/uL Lymph # (Auto) 2.1 (1.2-3.8) 10^3/uL Josephine # (Auto) 0.4 (0.3-0.8) 10^3/uL Eos # (Auto) 0.1 (0.0-0.7) 10^3/uL Baso # (Auto) 0.1 (0.0-0.1) 10^3/uL Abs Immat Gran (auto) 0.02 (0.00-0.03) 10^3/uL Imm/Tot Granulo (auto) 0.4 (0.0-0.5) % Sodium 140 (136-145) mmol/L Potassium 3.9 (3.5-5.1) mmol/L Chloride 100 (98-107) mmol/L Carbon Dioxide 23.5 (21.0-32.0) mmol/L Anion Gap 20.4 BUN 9.0 (7.0-18.0) mg/dL Creatinine 0.83 (0.70-1.30) mg/dL Est GFR ( Amer) >60 (>=60 mL/min/1.73m^2) Est GFR (Non-Af Amer) >60 (>=60 mL/min/1.73m^2) BUN/Creatinine Ratio 10.8 Glucose 96 (74-106) mg/dL Calcium 9.5 (8.5-10.1) mg/dL Total Bilirubin 0.6 (0.2-1.0) mg/dL AST 90 H (15-37) U/L ALT 90 H (16-63) U/L Alkaline Phosphatase 93 (46-116) U/L Total Protein 8.7 H (6.4-8.2) g/dL Albumin 4.6 (3.4-5.0) g/dL Globulin 4.1 g/dL Albumin/Globulin Ratio 1.1 Lipase 48.0 (16.0-77.0) U/L Imaging Data CT scan - abdomen: Attestation: I have reviewed the pertinent imaging results. Radiologist's impression: 1. No acute process in the abdomen or pelvis. 2. Mild hepatic steatosis. Discharge Plan Discharge Chief Complaint: Abdominal Pain Clinical Impression: Abdominal pain, Nausea, vomiting, and diarrhea Patient Disposition: Home, Self-Care Time of Disposition Decision: 17:41 Condition: Good Mode of Transportation: Private Vehicle Prescriptions / Home Meds: New ondansetron 4 mg tablet,disintegrating 4 mg PO Q8H PRN (Reason: nausea and vomiting) Qty: 12 0RF omeprazole 20 mg capsule,delayed release(DR/EC) 20 mg PO DAILY Qty: 14 0RF No Action amlodipine 5 mg tablet 5 mg PO DAILY hydroxyzine HCl 25 mg tablet 25 mg PO QID Print Language: Albanian Instructions: Acute Nausea and Vomiting (ED), Acute Diarrhea (ED), Abdominal Pain (ED) Additional Instructions: Return to the ER for worsening symptoms. Referrals: WILLIS TINSLEY [Physician, Gastroenterology] - 1 week AGUILA HERNANDEZ [Primary Care Provider, Family Practice] - 1 week
--- NOTE | 2024-11-01 16:01 | PC.NURSE ---
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
[2024-11-01] MEDS: ONDANSETRON PF 4 MG/2 ML VIAL IV (16:21)
[2024-11-01] MEDS: FAMOTIDINE/PF 20 MG/2 ML VIAL IV (16:21)
[2024-11-01 16:22] LABS: Basophils Absolute Auto 0.1 10^3/uL (0.0-0.1); Basophils Percent Auto 1.3 % (0.2-2.0); Eosinophils Absolute Auto 0.1 10^3/uL (0.0-0.7); Eosinophils Percent Auto 1.1 % (0.9-7.0); Hematocrit 44.8 % (42.0-54.0); Hemoglobin 16.6 g/dL (14.0-18.0); Immature Granulocytes Abs Auto 0.02 10^3/uL (0.00-0.03); Immature Granulocytes Pct Auto 0.4 % (0.0-0.5); Lymphocytes Absolute Auto 2.1 10^3/uL (1.2-3.8); Lymphocytes Percent Auto 38.6 % (20.5-60.0); Mean Corpuscular HGB Conc 37.1 g/dL (29.9-35.2); Mean Corpuscular Hemoglobin 34.7 pg (25.9-34.0); Mean Corpuscular Volume 93.5 fL (80.0-94.0); Mean Platelet Volume 9.6 fL (9.5-13.5); Monocytes Absolute Auto 0.4 10^3/uL (0.3-0.8); Monocytes Percent Auto 7.1 % (1.7-12.0); Neutrophils Absolute Auto 2.8 10^3/uL (1.4-6.5); Neutrophils Percent Auto 51.5 % (43.0-75.0); Platelet Count 255 10^3/uL (150-450); Red Blood Count 4.79 10^6/uL (4.70-6.10); Red Cell Distribution Width 11.7 % (11.0-15.0); White Blood Count 5.5 10^3/uL (4.0-11.0)
[2024-11-01] MEDS: 0.9 % SODIUM CHLORIDE 1,000 ML 999 ML IV (16:26)
[2024-11-01 16:43] LABS: Alanine Aminotransferase 90 U/L (16-63); Albumin Globulin Ratio 1.1; Albumin Level 4.6 g/dL (3.4-5.0); Alkaline Phosphatase 93 U/L (46-116); Anion Gap 20.4; Aspartate Amino Transferase 90 U/L (15-37); BUN Creatinine Ratio 10.8; Bilirubin Total 0.6 mg/dL (0.2-1.0); Calcium 9.5 mg/dL (8.5-10.1); Carbon Dioxide 23.5 mmol/L (21.0-32.0); Chloride 100 mmol/L (98-107); Estimated GFR (African America >60 (>=60 mL/min/1.73m^2); Estimated GFR (Non-African Ame >60 (>=60 mL/min/1.73m^2); Globulin 4.1 g/dL; Glucose 96 mg/dL (74-106); Potassium 3.9 mmol/L (3.5-5.1); Sodium 140 mmol/L (136-145); Total Protein 8.7 g/dL (6.4-8.2)
[2024-11-01] MEDS: DIAZEPAM 10 MG/2 ML SYRINGE 5 MG IV (17:00)
[2024-11-01 17:26] VITALS: BP 164/112; PULSE 94; O2SAT 98
[2024-11-01 17:49] VITALS: BP 176/91
== END 2024-11-01 18:02 | disposition home or self-care (01) ==
PROVIDERS: Nurse Practitioner Family; Emergency Provider Emergency Medicine; PCP Nurse Practitioner Family
DX: R10.10 Upper abdominal pain, unspecified (principal); R19.7 Diarrhea, unspecified; R11.2 Nausea with vomiting, unspecified; K76.0 Fatty (change of) liver, not elsewhere classified; Z87.891 Personal history of nicotine dependence
CPT/HCPCS: 36415; 74177; 80053; 83690; 85025; 96361; 96374; 96375; 99285; J2405; J3360; J3490